=== PATIENT | female | born 1970 | race Caucasian/White ===

== ENCOUNTER 2017-08-19 13:43 | Emergency (ER) | payer BC, SELFPAY ==
[2017-08-19 13:49] VITALS: BP 156/107; PULSE 84; RESP 18; TEMP 37.1; O2SAT 97; BMI 34.1
--- NOTE | 2017-08-19 14:20 | CT_ITS ---
CT abdomen pelvis w con COMPARISON: None HISTORY: Left flank pain for 3 days TECHNIQUE: Multiaxial scans obtained from the hemidiaphragms to the pelvic floor and were performed with IV and oral contrast. Sagittal and coronal reformats were evaluated as well. FINDINGS: The lower lung monzon are clear. The liver spleen stomach pancreas and gallbladder appear grossly normal. There is a small hiatal hernia noted. The adrenal glands are normal.. The kidneys are normal in size and show symmetrical function and there are no calculi and is no obstructive uropathy. Small bowel appears normal. There is a tiny umbilical hernia containing fat only. I do not definitely identify the appendix but there are no pericecal inflammatory changes. There is minimal scattered stool mixed with oral contrast throughout the colon. The uterus is normal size and in the midline. Urinary bladder is grossly normal, there is no free fluid in the pelvis. There is mild degenerative disc disease at L1-2 level with anterior osteophytic spurring noted. IMPRESSION: No acute abdominal or pelvic pathology identified.
--- NOTE | 2017-08-19 14:21 | HMH.EDABDPAI ---
ED Disposition Clinical Impression: Tinea cruris, Diarrhea, Nausea Disposition: Home, Self-Care Condition on Discharge: Fair Instructions: DI for Acute Abdomen Additional Instructions: 1- drink plenty of gotrade 16 q 4 1-2 days. 2- start BRTA diet tomorrow. 3- off work x 2 days. 4- bentyl , zofran and imodium. 5- follow up with pcp in am. 6- to retrun if not better.with a stool sample. Prescriptions: Dicyclomine HCl [Bentyl 10mg capsule] 10 mg PO Q6MINP PRN #12 cap PRN Reason: Cramping Loperamide HCl [Imodium 2 mg capsule] 2 mg PO Q6HP PRN #12 cap PRN Reason: Diarrhea Ondansetron [Zofran 4mg ODT] 4 mg PO Q8HP PRN #6 tab.rapdis PRN Reason: Nausea - Critical Care Critical Care Time: No Attestation: On 08/19/17, the high probability of a clinically significant, sudden or life threatening deterioration of the following system(s) required my full and direct attention, intervention and personal management. The time I documented below is in addition to time spent performing reported procedures but includes the following listed in this critical care notation. Medical Decision Making - Hugo Inquiry Pt receiving controlled substance: No Hugo was queried for this patient: No Vital Signs: 08/19/17 13:49 08/19/17 15:31 Temperature 98.7 F Temperature Source Oral Pulse Rate [Right Radial] 84 68 Respiratory Rate 18 16 Blood Pressure [Right Arm] 156/107 150/86 Blood Pressure Mean [Right Arm] 123 107 Blood Pressure Source [Right Arm] Automatic Cuff Automatic Cuff Blood Pressure Position [Right Arm] Sitting Sitting 02 Sat by Pulse Oximetry 97 98 Oxygen Delivery Method Room Air Room Air - Lab Data Lab Results 08/19/17 14:23: WBC 7.0, RBC 4.59, Hgb 13.7, Hct 41.9, MCV 91.2, MCH 29.9, MCHC 32.8, RDW 14.6, Plt Count 299, MPV 7.3 L, Neut % (Auto) 53.3, Lymph % (Auto) 38.1, [place] % (Auto) 6.9, Eos % (Auto) 1.3, Baso % (Auto) 0.4, Neut # (Auto) 3.7, Lymph # (Auto) 2.7, [place] # (Auto) 0.5, Eos # (Auto) 0.1, Baso # (Auto) 0.0 08/19/17 14:23: Sodium 138, Potassium 3.7, Chloride 102, Carbon Dioxide 28, Anion Gap 11.7, BUN 9, Creatinine 0.70, Estimated Creat Clear 149, Estimated GFR 90, Est GFR ( Amer) 109, Glucose 90, Calcium 8.8, Magnesium 1.9, Total Bilirubin 0.3, AST 71 H, ALT 87 H, Alkaline Phosphatase 98, Total Protein 8.3 H, Albumin 3.5, Globulin 4.8 H, Albumin/Globulin Ratio 0.7 L, Lipase 146 Result diagrams: 08/19/17 14:23 08/19/17 14:23 Orders (Tests/Meds): ED MEDICATIONS Discontinued Medications Generic Name Dose Route Start Last Admin Trade Name Freq PRN Reason Stop Dose Admin Diatrizoate Meglum/Diatrizoate Sod 30 ml 08/19/17 15:23 08/19/17 15:28 Gastrografin 66%-10% 30ml PO 08/19/17 15:24 30 ml ONCE ONE Administration Dicyclomine HCl 10 mg 08/19/17 14:20 08/19/17 15:28 Bentyl 10mg Capsule PO 08/19/17 14:21 10 mg ONCE ONE Administration Famotidine 20 mg 08/19/17 14:20 08/19/17 15:28 Pepcid 20mg/2ml Vial IV 08/19/17 14:21 20 mg ONCE ONE Administration Sodium Chloride 1,000 mls @ 999 mls/hr 08/19/17 14:30 08/19/17 15:37 Sod Chlor 0.9% 1000ml Bag IV 08/19/17 15:30 999 mls/hr .Q1H1M KALYANI Administration Iopamidol 75 ml 08/19/17 17:09 08/19/17 17:15 [id number]; 75ml Vial IV 08/19/17 17:10 75 ml ONCE ONE Administration Ondansetron HCl 4 mg 08/19/17 14:20 08/19/17 15:28 Zofran 4mg/2ml Vial IV 08/19/17 14:21 4 mg ONCE ONE Administration Sodium Chloride 10 ml 08/19/17 17:09 08/19/17 17:15 Rad-Saline Flush 10ml Syringe IV 08/19/17 17:10 10 ml ONCE ONE Administration Abdominal Pain HPI - General Chief Complaint: Abdominal Pain Stated Complaint: Left side Pain Time Seen by Provider: 08/19/17 14:30 Mode of Arrival: Ambulatory Limitations: No Limitations Description of Symptoms (Recalled from ER Triage Doc. by RN): PAIN IN UPPER LEFT QUAD THAT IS TENDER TO THE TOUCH, EXTREME FULLNESS A
--- NOTE | 2017-08-19 14:24 | ED_ITS ---
ED Disposition Clinical Impression: Tinea cruris, Diarrhea, Nausea Disposition: Home, Self-Care Condition on Discharge: Fair Instructions: DI for Acute Abdomen Additional Instructions: 1- drink plenty of gotrade 16 q 4 1-2 days. 2- start BRTA diet tomorrow. 3- off work x 2 days. 4- bentyl , zofran and imodium. 5- follow up with pcp in am. 6- to retrun if not better.with a stool sample. Prescriptions: Dicyclomine HCl [Bentyl 10mg capsule] 10 mg PO Q6MINP PRN #12 cap PRN Reason: Cramping Loperamide HCl [Imodium 2 mg capsule] 2 mg PO Q6HP PRN #12 cap PRN Reason: Diarrhea Ondansetron [Zofran 4mg ODT] 4 mg PO Q8HP PRN #6 tab.rapdis PRN Reason: Nausea - Critical Care Critical Care Time: No Attestation: On 08/19/17, the high probability of a clinically significant, sudden or life threatening deterioration of the following system(s) required my full and direct attention, intervention and personal management. The time I documented below is in addition to time spent performing reported procedures but includes the following listed in this critical care notation. Medical Decision Making - Hugo Inquiry Pt receiving controlled substance: No Hugo was queried for this patient: No Vital Signs: 08/19/17 13:49 08/19/17 15:31 Temperature 98.7 F Temperature Source Oral Pulse Rate [Right Radial] 84 68 Respiratory Rate 18 16 Blood Pressure [Right Arm] 156/107 150/86 Blood Pressure Mean [Right Arm] 123 107 Blood Pressure Source [Right Arm] Automatic Cuff Automatic Cuff Blood Pressure Position [Right Arm] Sitting Sitting 02 Sat by Pulse Oximetry 97 98 Oxygen Delivery Method Room Air Room Air - Lab Data Lab Results 08/19/17 14:23: WBC 7.0, RBC 4.59, Hgb 13.7, Hct 41.9, MCV 91.2, MCH 29.9, MCHC 32.8, RDW 14.6, Plt Count 299, MPV 7.3 L, Neut % (Auto) 53.3, Lymph % (Auto) 38.1, [place]ook[place] % (Auto) 6.9, Eos % (Auto) 1.3, Baso % (Auto) 0.4, Neut # (Auto) 3.7 , Lymph # (Auto) 2.7, [place] # (Auto) 0.5, Eos # (Auto) 0.1, Baso # (Auto) 0.0 08/19/17 14:23: Sodium 138, Potassium 3.7, Chloride 102, Carbon Dioxide 28, Anion Gap 11.7, BUN 9, Creatinine 0.70, Estimated Creat Clear 149, Estimated GFR 90, Est GFR ( Amer) 109, Glucose 90, Calcium 8.8, Magnesium 1.9, Total Bilirubin 0.3, AST 71 H, ALT 87 H, Alkaline Phosphatase 98, Total Protein 8.3 H, Albumin 3.5, Globulin 4.8 H, Albumin/Globulin Ratio 0.7 L, Lipase 146 Result diagrams: 08/19/17 14:23 08/19/17 14:23 Orders (Tests/Meds): ED MEDICATIONS Discontinued Medications Generic Name Dose Route Start Last Admin Trade Name Freq PRN Reason Stop Dose Admin Diatrizoate Meglum/Diatrizoate Sod 30 ml 08/19/17 15:23 08/19/17 15:28 Gastrografin 66%-10% 30ml PO 08/19/17 15:24 30 ml ONCE ONE Administration Dicyclomine HCl 10 mg 08/19/17 14:20 08/19/17 15:28 Bentyl 10mg Capsule PO 08/19/17 14:21 10 mg ONCE ONE Administration Famotidine 20 mg 08/19/17 14:20 08/19/17 15:28 Pepcid 20mg/2ml Vial IV 08/19/17 14:21 20 mg ONCE ONE Administration Sodium Chloride 1,000 mls @ 999 mls/hr 08/19/17 14:30 08/19/17 15:37 Sod Chlor 0.9% 1000ml Bag IV 08/19/17 15:30 999 mls/hr .Q1H1M KALYANI Administration Iopamidol 75 ml 08/19/17 17:09 08/19/17 17:15 [id number]; 75ml Vial IV 08/19/17 17:10 75 ml
[2017-08-19 14:53] LABS: Basophils % 0.4 % (0.1-2.0); Eosinophils # 0.1 K/mm3 (0.0-0.4); Eosinophils % 1.3 % (0.1-12.0); Hematocrit 41.9 % (37.0-47.0); Hemoglobin 13.7 g/dL (12.2-16.2); Lymphocytes # 2.7 K/mm3 (0.7-4.5); Lymphocytes % 38.1 K/mm3 (10-50); Mean Corpuscular HGB Conc 32.8 g/dL (31.8-35.4); Mean Corpuscular Hemoglobin 29.9 pg (27.0-31.2); Mean Corpuscular Volume 91.2 fl (81-99); Mean Platelet Volume 7.3 fl (7.4-10.4); Monocytes # 0.5 K/mm3 (0.1-1.0); Monocytes % 6.9 % (1.7-9.3); Neutrophils # 3.7 K/mm3 (1.8-7.8); Neutrophils % 53.3 % (37.0-80.0); Platelet Count 299 K/mm3 (142-424); Red Blood Count 4.59 M/mm3 (4.20-5.40); Red Cell Distribution Width 14.6 % (11.5-17.5)
[2017-08-19 15:01] LABS: Alanine Aminotransferase 87 U/L (12-78); Albumin Level 3.5 gm/dL (3.4-5.0); Albumin/Globulin Ratio 0.7 (1.1-1.8); Alkaline Phosphatase 98 U/L (46-116); Anion Gap 11.7 mEq/L (5-15); Aspartate Amino Transferase 71 U/L (15-37); Bilirubin,Total 0.3 mg/dL (0.2-1.0); Blood Urea Nitrogen 9 mg/dL (7-18); Calcium 8.8 mg/dL (8.5-10.1); Carbon Dioxide 28 mmol/L (21.0-32.0); Chloride 102 mmol/L (98-107); Creatinine Clearance Estimated 149 mL/min (0-300); Estimated Glomerular Filt Rate 90 ml/min (>60); GFR (African American) 109 ML/MIN (>60); Globulin 4.8 gm/dl (1.3-3.2); Glucose 90 mg/dL (74-106); Lipase 146 u/L (73-393); Magnesium 1.9 mg/dL (1.4-2.2); Potassium 3.7 mmoL/L (3.5-5.1); Sodium 138 mmol/L (136-145); Total Protein,Serum 8.3 gm/dL (6.4-8.2)
[2017-08-19 15:31] VITALS: BP 150/86; PULSE 68; RESP 16; O2SAT 98
--- NOTE | 2017-08-19 15:31 | PC.NURSE ---
Pt finished PO contrast at this time, notified RAD
--- NOTE | 2017-08-19 17:47 | PC.NURSE ---
WATER GIVEN TO PT TO ASSESS PT'S TOLERANCE
--- NOTE | 2017-08-19 18:23 | PC.NURSE ---
PT TOLERATED WATER, GIVEN DEXTER FARRAH AT THIS TIME.
[2017-08-19 18:46] VITALS: BP 150/86; PULSE 88; RESP 14; TEMP 36.9; O2SAT 97
== END 2017-08-19 18:49 | disposition home or self-care (01) ==
PROVIDERS: Emergency Provider Emergency Medicine; Family Provider Family Medicine Geriatric Medicine
DX: B35.6 Tinea cruris (principal); R10.12 Left upper quadrant pain; Z88.1 Allergy status to other antibiotic agents; Z88.2 Allergy status to sulfonamides; Z88.8 Allergy status to other drugs, medicaments and biological substances
CPT/HCPCS: 74177; 80053; 83690; 83735; 85025; 96365; 96375; 99283; J2405; Q9967

== ENCOUNTER → 2017-08-23 14:15 | Outpatient (REF) | payer BC, SELFPAY ==
[2017-08-23 14:18] LABS: Adenovirus F 40/41, stool Not Detected (NotDetected); Astrovirus Not Detected (NotDetected); Campylobacter Not Detected (NotDetected); Clostridium Difficile A/B, PCR Not Detected (NotDetected); Cryptosporidium Not Detected (NotDetected); Cyclospora Cayetanesis Not Detected (NotDetected); Entamoeba histolytica Not Detected (NotDetected); Enteroaggregative E coli Not Detected (NotDetected); Enteropathogenic E coli Not Detected (NotDetected); Enterotoxigenic E coli Not Detected (NotDetected); Giardia lamblia Not Detected (NotDetected); Norovirus Not Detected (NotDetected); Plesimonas Shigalloides, PCR Not Detected (NotDetected); Rotavirus A Not Detected (NotDetected); Salmonella, PCR Not Detected (NotDetected); Sapovirus Not Detected (NotDetected); Shiga-like toxin E coli Not Detected (NotDetected); Shigella Enterovasive E coli Not Detected (NotDetected); Vibrio Cholerae Not Detected (NotDetected); Vibrio, PCR Not Detected (NotDetected); Yersinia Entercolitica, PCR Not Detected (NotDetected)
== END ==
LOC: LAB 14:15
PROVIDERS: Visit Provider Emergency Medicine
DX: R19.7 Diarrhea, unspecified (principal); R11.0 Nausea
CPT/HCPCS: 87507

== ENCOUNTER → 2017-12-13 10:49 | Outpatient (REF) | payer BC, SELFPAY ==
[2017-12-13 13:26] LABS: Basophils % 0.3 % (0.1-2.0); Eosinophils # 0.1 K/mm3 (0.0-0.4); Eosinophils % 1.1 % (0.1-12.0); Hematocrit 40.7 % (37.0-47.0); Hemoglobin 12.8 g/dL (12.2-16.2); Lymphocytes # 2.4 K/mm3 (0.7-4.5); Lymphocytes % 41.2 K/mm3 (10-50); Mean Corpuscular HGB Conc 31.6 g/dL (31.8-35.4); Mean Corpuscular Hemoglobin 29.5 pg (27.0-31.2); Mean Corpuscular Volume 93.6 fl (81-99); Monocytes # 0.2 K/mm3 (0.1-1.0); Monocytes % 4.1 % (1.7-9.3); Neutrophils # 3.1 K/mm3 (1.8-7.8); Neutrophils % 53.2 % (37.0-80.0); Platelet Count 324 K/mm3 (142-424); Red Blood Count 4.35 M/mm3 (4.20-5.40); Red Cell Distribution Width 14.6 % (11.5-17.5); White Blood Count 5.8 K/mm3 (4.8-10.8)
[2017-12-13 13:53] LABS: Alanine Aminotransferase 113 U/L (12-78); Albumin Level 3.4 gm/dL (3.4-5.0); Albumin/Globulin Ratio 0.7 (1.1-1.8); Alkaline Phosphatase 100 U/L (46-116); Anion Gap 12.4 mEq/L (5-15); Aspartate Amino Transferase 95 U/L (15-37); Bilirubin,Total 0.2 mg/dL (0.2-1.0); Blood Urea Nitrogen 13 mg/dL (7-18); Calcium 9.1 mg/dL (8.5-10.1); Carbon Dioxide 28 mmol/L (21.0-32.0); Chloride 103 mmol/L (98-107); Chol/HDL Ratio 3.2 (1-3.5); Cholesterol 149 mg/dL (140-200); Creatinine,Serum 0.79 mg/dL (0.55-1.02); Estimated Glomerular Filt Rate 79 ml/min (>60); GFR (African American) 95 ML/MIN (>60); Globulin 4.6 gm/dl (1.3-3.2); Glucose 167 mg/dL (74-106); HDL Cholesterol 47 mg/dL (29-89); LDL Cholesterol 81 mg/dL (0-130); Potassium 3.4 mmoL/L (3.5-5.1); Sodium 140 mmol/L (136-145); Triglycerides 104 mg/dL (30-200); VLDL Cholesterol 21 mg/dL (0-40)
[2017-12-13 14:02] LABS: Hemoglobin A1C 6.5 % (0.0-7.0)
[2017-12-13 15:57] LABS: Erythrocyte Sedimentation Rate 48 mm/hr (0-20)
[2017-12-14 17:59] LABS: Vitamin D 25 Hydroxy 26.2 ng/mL (30.0-100.0)
== END ==
LOC: LAB 10:49
PROVIDERS: Visit Provider Nurse Practitioner Family
DX: R53.83 Other fatigue (principal); Z79.899 Other long term (current) drug therapy; I10 Essential (primary) hypertension; M25.551 Pain in right hip; M25.552 Pain in left hip
CPT/HCPCS: 80053; 80061; 82652; 83036; 84439; 84443; 85025; 85651

== ENCOUNTER → 2017-12-13 16:21 | Outpatient (CLI) | payer BC, SELFPAY | PROVIDERS: Visit Provider Nurse Practitioner Family | DX: R74.8 Abnormal levels of other serum enzymes (principal) ==

== ENCOUNTER → 2017-12-24 16:32 | Outpatient (CLI) | payer BC, SELFPAY ==
[2017-12-26 11:32] LABS: Hep A Ab, IgM Negative (Negative); Hepatitis B Core Antibody IgM Negative (Negative); Hepatitis B Surface Antigen Negative (Negative)
[2017-12-28 06:33] LABS: Hepatitis C Antibody 0.1 s/co ratio (0.0-0.9)
== END ==
PROVIDERS: Visit Provider Nurse Practitioner Family
DX: R74.8 Abnormal levels of other serum enzymes (principal)
CPT/HCPCS: 36415; 80074

== ENCOUNTER → 2017-12-28 10:16 | Outpatient (CLI) | payer BC, SELFPAY ==
--- NOTE | 2017-12-28 10:17 | US_ITS ---
US thyroid COMPARISON: None HISTORY: Weight gain, fatigue TECHNIQUE: Targeted ultrasound the thyroid FINDINGS: The isthmus appears normal. The right lobe measures 1.2 x 4.1 x 1.7 cm. The left lobe measures 1.5 x 4.4 x 1.7 cm. There is homogeneous echogenicity in each lobe. There is a tiny hypoechoic but likely solid nodule lower pole left lobe measuring 0.4 x 0.3 cm in diameter. There are somewhat decreased flow bilaterally. IMPRESSION: Borderline enlarged gland with possible tiny adenoma left lobe
== END ==
PROVIDERS: Family Provider Family Medicine Geriatric Medicine; PCP Nurse Practitioner Family; Visit Provider Emergency Medicine
DX: E04.1 Nontoxic single thyroid nodule (principal)
CPT/HCPCS: 76536

== ENCOUNTER → 2018-04-22 18:28 | Outpatient (CLI) | payer BC, SELFPAY | PROVIDERS: Visit Provider Nurse Practitioner Family | DX: R82.998 Other abnormal findings in urine (principal) | CPT/HCPCS: 82043; 87086 ==

== ENCOUNTER → 2018-09-24 09:15 | Outpatient (CLI) | payer BC, SELFPAY ==
[2018-09-24 10:47] VITALS: BMI 34.1
== END ==
PROVIDERS: PCP Emergency Medicine; Visit Provider Nurse Practitioner Family
DX: E11.9 Type 2 diabetes mellitus without complications (principal)
CPT/HCPCS: 97802

== ENCOUNTER → 2018-12-26 14:10 | Outpatient (CLI) | payer BC, SELFPAY | PROVIDERS: Visit Provider Physician Assistant | DX: N39.0 Urinary tract infection, site not specified (principal) | CPT/HCPCS: 87086 ==

== ENCOUNTER 2019-12-24 10:07 | Emergency (ER) | payer BC, SELFPAY ==
[2019-12-24 10:18] VITALS: BP 116/75; PULSE 68; RESP 17; TEMP 36.9; O2SAT 99; BMI 30.4
--- NOTE | 2019-12-24 10:23 | XR_ITS ---
PROCEDURE: XR LUMBAR SPINE 2-3V CLINICAL INDICATION: pain Low back pain COMPARISON: ABDPELW CT abdomen pelvis w con from 08/19/2017 FINDINGS: There is normal alignment. There is degenerative disc disease at L1-L2 L2-L3 L4-5 and L5-S1 with endplate osteophytes anteriorly at L1-L2 and smaller anterior osteophytes at L3-L4 and L5. Small posterior osteophytes are present at L4-5 and L5-S1. There is kyphosis at the lumbo thoracic junction. There is 3 mm retrolisthesis of L2. no lytic or blastic change. IMPRESSION: Multilevel lumbar spondylosis as detailed above. Dictated by: Rohith Patiño MD 12/24/2019 12:00 Electronically signed by Rohith Patiño MD in [place] 12/24/2019 12:00
--- NOTE | 2019-12-24 10:24 | PC.NURSE ---
UA being sent to lab at this time.
[2019-12-24 10:29] LABS: Microscopic, Urine URINE MICROSCOPIC (MICROSCOPIC)
[2019-12-24 10:33] LABS: Appearance,Urine CLEAR (Clear); Bilirubin,Urine Negative (Negative); Blood, Urine 1+ (Negative); Color,Urine YELLOW (Yellow); Glucose,Urine (UA) Negative (Negative); Ketones,Urine Negative (Negative); Leukocyte Esterase,Urine 2+ (Negative); Nitrate,Urine Negative (Negative); Protein,Urine 1+ (Negative); Specific Gravity, Urine >= 1.030 (1.005-1.030); Urobilinogen,Urine 0.2 EU/dl (0.2)
[2019-12-24 10:43] LABS: WBC,Urine 20-50 #/hpf (0-3)
[2019-12-24 10:44] LABS: Bacteria,Urine 3+ /lpf
--- NOTE | 2019-12-24 11:06 | HMH.EDGENADL ---
ED Disposition Clinical Impression: Pyelonephritis Disposition: Home, Self-Care Condition on Discharge: Good Instructions: DI for Kidney Infection Additional Instructions: Additional instructions for URINARY TRACT INFECTION: See your physician in 2-3 days for follow up and culture results. Return immediately if you have an uncontrollable fever greater than 102 degrees, severe back or abdominal pain, inability to urinate, or repetitive vomiting. See Dr. Metzger in the office tomorrow. Prescriptions: Ibuprofen [Ibuprofen 800mg Tab] 800 mg PO Q8HP PRN #15 tab PRN Reason: Moderate Pain Transmission Status: Received by [id number] Ciprofloxacin HCl [Ciprofloxacin 500mg Tab] 500 mg PO BID #20 tab Transmission Status: Received by [id number] Referrals: Hubert Medley MD [Primary Care Provider] - Forms: Work/School Release - Critical Care Critical Care Time: No Attestation: On 12/24/19, the high probability of a clinically significant, sudden or life threatening deterioration of the following system(s) required my full and direct attention, intervention and personal management. The time I documented below is in addition to time spent performing reported procedures but includes the following listed in this critical care notation. Medical Decision Making - Medical Records Medical records reviewed: Yes: I reviewed the patient's medical records. - Hugo Inquiry Pt receiving controlled substance: Yes (patient requests more pain med after toradol) Hugo was queried for this patient: Yes Reference #:: [id number] Risks and benefits of using a controlled substance: were not discussed with pt by me Comment: 0 rxs. Vital Signs: 12/24/19 10:18 12/24/19 13:30 12/24/19 13:58 Temperature 98.5 F 98.5 F Temperature Source Oral Pulse Rate 74 Pulse Rate [Radial] 68 79 Respiratory Rate 17 16 Blood Pressure 110/74 Blood Pressure [Right Arm] 116/75 103/74 L Blood Pressure Mean [Right Arm] 88 83 Blood Pressure Source Automatic Cuff Blood Pressure Source [Right Arm] Automatic Cuff Automatic Cuff Blood Pressure Position Sitting Blood Pressure Position [Right Arm] Sitting Sitting 02 Sat by Pulse Oximetry 99 98 Oxygen Delivery Method Room Air Room Air Room Air - Lab Data Lab results reviewed: Yes: I reviewed the patient's lab results. Lab Results 12/24/19 10:19: Urine Color Yellow, Urine Appearance Clear, Urine pH 6.0, Ur Specific Howes >= 1.030, Urine Protein 1+, Urine Glucose (UA) Negative, Urine Ketones Negative, Urine Blood 1+, Urine Nitrate Negative, Urine Bilirubin Negative, Urine Urobilinogen 0.2, Ur Leukocyte Esterase 2+ A, Urine WBC 20-50, Ur Squamous Epith Cells 10-20, Urine Bacteria 3+ 12/24/19 11:30: WBC 10.1, RBC 3.88 L, Hgb 11.7 L, Hct 34.3 L, MCV 88.4, MCH 30.1, MCHC 34.0, RDW 14.7, Plt Count 258, MPV 8.1, Neut % (Auto) 86.2 H, Lymph % (Auto) 7.8 L, [place] % (Auto) 3.8, Eos % (Auto) 2.2, Baso % (Auto) 0.1, Neut # (Auto) 8.7 H, Lymph # (Auto) 0.8, [place] # (Auto) 0.4, Eos # (Auto) 0.2, Baso # (Auto) 0.0, Total Counted 100, Neutrophils % (Manual) 83 H, Band Neutrophils % 6.0, Lymphocytes % (Manual) 8 L, Monocytes % (Manual) 2, Eosinophils % (Manual) 1, Platelet Estimate Normal, RBC Morphology Normal 12/24/19 11:30: Sodium 135 L, Potassium 3.4 L, Chloride 97 L, Carbon Dioxide 30, Anion Gap 11.4, BUN 14, Creatinine 0.70, Estimated Creat Clear 130, Estimated GFR 90, Est GFR ( Amer) 109, Glucose 146 H, Calcium 9.1, Total Bilirubin 0.5, AST 31, ALT 23, Alkaline Phosphatase 109, Total Protein 8.3 H, Albumin 4.0, Globulin 4.3 H, Albumin/Globulin Ratio 0.9 L 12/24/19 11:30: Lactate 1.5 Result diagrams: 12/24/19 11:30 12/24/19 11:30 Orders (Tests/Meds): ED MEDICATIONS Discontinued Medications Generic Name Dose Route Start Last Admin Trade Name Freq PRN Reason Stop Dose Admin Hydrocodone Bitart/Acetaminophen 1 tab 12/24/19 13:27 12/24/19 13:40 [place] 5/325mg Tablet P
[2019-12-24 11:45] LABS: Basophils % 0.1 % (0.1-2.0); Eosinophils # 0.2 K/mm3 (0.0-0.4); Eosinophils % 2.2 % (0.1-12.0); Hematocrit 34.3 % (37.0-47.0); Hemoglobin 11.7 g/dL (12.2-16.2); Lymphocytes # 0.8 K/mm3 (0.7-4.5); Lymphocytes % 7.8 % (10-50); Mean Corpuscular Hemoglobin 30.1 pg (27.0-31.2); Mean Corpuscular Volume 88.4 fl (81-99); Mean Platelet Volume 8.1 fl (7.4-10.4); Monocytes # 0.4 K/mm3 (0.1-1.0); Monocytes % 3.8 % (1.7-9.3); Neutrophils # 8.7 K/mm3 (1.8-7.8); Neutrophils % 86.2 % (37.0-80.0); Platelet Count 258 K/mm3 (142-424); Red Blood Count 3.88 M/mm3 (4.20-5.40); Red Cell Distribution Width 14.7 % (11.5-17.5); White Blood Count 10.1 K/mm3 (4.8-10.8)
[2019-12-24 11:49] LABS: MANUAL DIFFERENTIAL MANUAL DIFFERENTIAL (MANUAL DIFF)
[2019-12-24 11:58] LABS: Lactic Acid 1.5 mmol/L (0.7-2.1)
[2019-12-24 11:59] LABS: Alanine Aminotransferase 23 U/L (12-78); Albumin/Globulin Ratio 0.9 (1.1-1.8); Alkaline Phosphatase 109 U/L (38-126); Anion Gap 11.4 mEq/L (5-15); Aspartate Amino Transferase 31 U/L (14-36); Bilirubin,Total 0.5 mg/dl (0.2-1.3); Blood Urea Nitrogen 14 mg/dl (7-17); Calcium 9.1 mg/dl (8.4-10.2); Carbon Dioxide 30 mmol/L (22.0-30.0); Chloride 97 mmol/L (98-107); Creatinine Clearance Estimated 130 mL/min (50-200); Estimated Glomerular Filt Rate 90 ml/min (>60); GFR (African American) 109 ML/MIN (>60); Globulin 4.3 g/dL (1.3-3.2); Glucose 146 mg/dl (74-100); Potassium 3.4 mmoL/L (3.5-5.1); Sodium 135 mmol/L (136-145); Total Protein,Serum 8.3 g/dl (6.3-8.2)
[2019-12-24 12:13] LABS: Eosinophils % 1 % (0-3); Lymphocytes % 8 % (10-50); Monocytes % 2 % (2-9); Neutrophils % 83 % (42-76); Platelet Estimate Normal; RBC Morphology Normal; Total Cells Counted 100
[2019-12-24 13:30] VITALS: BP 103/74; PULSE 79; O2SAT 98
[2019-12-24 13:58] VITALS: BP 110/74; PULSE 74; RESP 16; TEMP 36.9; O2SAT 98
== END 2019-12-24 14:00 | disposition home or self-care (01) ==
PROVIDERS: Emergency Provider Emergency Medicine; PCP Emergency Medicine
DX: N12 Tubulo-interstitial nephritis, not specified as acute or chronic (principal); E11.9 Type 2 diabetes mellitus without complications; Z79.84 Long term (current) use of oral hypoglycemic drugs; F41.9 Anxiety disorder, unspecified; I10 Essential (primary) hypertension; M79.7 Fibromyalgia; Z88.1 Allergy status to other antibiotic agents; Z79.899 Other long term (current) drug therapy
CPT/HCPCS: 72100; 80053; 81001; 83605; 85007; 85025; 87040; 87086; 96365; 96375; 99284; J1956

== ENCOUNTER 2019-12-28 18:41 | Inpatient (IN) | payer BC, SELFPAY ==
[2019-12-28] VITALS (19 sets, daily range): BP systolic 69–146; BP diastolic 46–89; PULSE 86–101; RESP 16–20; TEMP 37.2–37.5; O2SAT 96–100; BMI 30.2; BMI 31.7
--- NOTE | 2019-12-28 19:02 | HMH.EDGENADL ---
ED Disposition Condition on Discharge: Critical - Critical Care Critical Care Time: Yes Total Critical Care Time: 45 Vital system(s) involved:: Renal Failure, Shock (Septic) My critical care processes included: Assessment & monitoring of V/S, Initial and Re-exams, Data Review/Interpretation, Coordinating Care, Medication Orders and management, Documentation <Hubert Kaye - Last Filed: 12/28/19 19:59> <Hubert Medley - Last Filed: 12/28/19 22:09> Clinical Impression: Sepsis associated hypotension, Severe sepsis with acute organ dysfunction, Septic shock, LIZZETH (acute kidney injury), Obesity (BMI 30.0-34.9), Elevated erythrocyte sedimentation rate, Elevated C-reactive protein (CRP) UTI (urinary tract infection) Qualifiers: Urinary tract infection type: site unspecified Hematuria presence: without hematuria Qualified Code(s): N39.0 - Urinary tract infection, site not specified Diabetes mellitus Qualifiers: Diabetes mellitus type: type 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 insulin use status Diabetes mellitus complication status: with other specified complication Qualified Code(s): E11.69 - Type 2 diabetes mellitus with other specified complication Disposition: Admitted As Inpatient Instructions: DI for Diarrhea and Traveler's Diarrhea -- Adult, DI for Diarrhea and Traveler's Diarrhea -- Child, DI for Nausea -- Adult, DI for Nausea -- Child Referrals: Hubert Medley MD [Primary Care Provider] - Attestation: On 12/28/19, the high probability of a clinically significant, sudden or life threatening deterioration of the following system(s) required my full and direct attention, intervention and personal management. The time I documented below is in addition to time spent performing reported procedures but includes the following listed in this critical care notation. Medical Decision Making - Medical Records Medical records reviewed: Yes: I reviewed the patient's medical records. - Hugo Inquiry Pt receiving controlled substance: No - Lab Data Lab results reviewed: Yes: I reviewed the patient's lab results. Result diagrams: 12/28/19 19:02 12/28/19 19:02 - Tissue Perfus/Sepsis Re-Eval Sepsis Re-Evaluation Performed: Yes Date Performed: 12/28/19 Time Performed: 19:59 <Hubert Kaye - Last Filed: 12/28/19 19:59> - Lab Data Result diagrams: 12/28/19 19:02 12/28/19 19:02 - Radiology Data #1 Image(s): Chest Image Reviewed: Yes I reviewed the patient's radiology image Preliminary Findings: Normal/NAD - CT Data CT Scan: Abdomen, Pelvis Time Received: 22:[address] Reviewed: Yes: I have viewed the radiologist's interpretation Preliminary Findings: Normal/NAD <GalindoHubert rincon S - Last Filed: 12/28/19 22:09> Vital Signs: 12/28/19 18:43 12/28/19 19:00 12/28/19 19:30 Temperature 99.5 F Temperature Source Oral Pulse Rate [Left Radial] 101 H 92 H 88 Pulse Rate [Orthostatic Lying Right Radial] Pulse Rate [Orthostatic Sitting Right Radial] Pulse Rate [Orthostatic Standing Right Radial] Respiratory Rate 20 18 18 Blood Pressure [Orthostatic Lying Right Arm] Blood Pressure [Orthostatic Sitting Right Arm] Blood Pressure [Orthostatic Standing Right Arm] Blood Pressure [Right Radial Artery] 85/62 L 85/50 L 72/48 L Blood Pressure Mean [Right Radial Artery] 69 61 56 Blood Pressure Source [Right Radial Artery] Automatic Cuff Automatic Cuff Blood Pressure Position [Right Radial Artery] Sitting Supine Supine 02 Sat by Pulse Oximetry 97 96 96 Oxygen Delivery Method Room Air Room Air Room Air 12/28/19 19:45 12/28/19 20:00 12/28/19 20:08 Temperature Temperature Source Pulse Rate [Left Radial] 91 H 99 H 88 Pulse Rate [Orthostatic Lying Right Radial] Pulse Rate [Orthostatic Sitting Right Radial] Pulse Rate [Orthostatic Standing Right Radial] Respiratory Rate 18 18 18 Blood Pressure [Orthostatic Lying Right Arm] Blood Pressure [Orthostati
[2019-12-28 19:14] LABS: Basophils % 0.1 % (0.1-2.0); Eosinophils # 0.1 K/mm3 (0.0-0.4); Eosinophils % 0.4 % (0.1-12.0); Hemoglobin 11.1 g/dL (12.2-16.2); Lymphocytes # 0.7 K/mm3 (0.7-4.5); Lymphocytes % 5.8 % (10-50); Mean Corpuscular HGB Conc 33.5 g/dL (31.8-35.4); Mean Corpuscular Hemoglobin 29.6 pg (27.0-31.2); Mean Corpuscular Volume 88.2 fl (81-99); Mean Platelet Volume 8.3 fl (7.4-10.4); Monocytes # 0.2 K/mm3 (0.1-1.0); Monocytes % 1.6 % (1.7-9.3); Neutrophils # 11.6 K/mm3 (1.8-7.8); Neutrophils % 92.1 % (37.0-80.0); Platelet Count 256 K/mm3 (142-424); Red Blood Count 3.74 M/mm3 (4.20-5.40); Red Cell Distribution Width 14.6 % (11.5-17.5); White Blood Count 12.6 K/mm3 (4.8-10.8)
[2019-12-28 19:19] LABS: MANUAL DIFFERENTIAL MANUAL DIFFERENTIAL (MANUAL DIFF)
[2019-12-28 19:23] LABS: Alanine Aminotransferase 25 U/L (12-78); Albumin Level 3.6 g/dl (3.5-5.0); Albumin/Globulin Ratio 0.8 (1.1-1.8); Alkaline Phosphatase 179 U/L (38-126); Anion Gap 20.3 mEq/L (5-15); Aspartate Amino Transferase 35 U/L (14-36); Bilirubin,Total 1.6 mg/dl (0.2-1.3); Blood Urea Nitrogen 35 mg/dl (7-17); Calcium 8.8 mg/dl (8.4-10.2); Carbon Dioxide 26 mmol/L (22.0-30.0); Chloride 89 mmol/L (98-107); Creatinine Clearance Estimated 30 mL/min (50-200); Estimated Glomerular Filt Rate 17 ml/min (>60); GFR (African American) 20 ML/MIN (>60); Globulin 4.3 g/dL (1.3-3.2); Glucose 187 mg/dl (74-100); Potassium 3.3 mmoL/L (3.5-5.1); Sodium 132 mmol/L (136-145); Total Protein,Serum 7.9 g/dl (6.3-8.2)
[2019-12-28 19:30] LABS: Lymphocytes % 4 % (10-50); Neutrophils % 82 % (42-76); Platelet Estimate Normal; RBC Morphology Normal; Rouleaux 1+; Total Cells Counted 100
--- NOTE | 2019-12-28 19:32 | CT_ITS ---
PROCEDURE: CT ABDOMEN PELVIS WO CON CLINICAL INDICATION: fever/bandemia/intractable vomiting COMPARISON: ABDPELW CT abdomen pelvis w con from 08/19/2017 TECHNIQUE: Axial images obtained with sagittal and coronal reformats. All CT scans at the facility use one or more dose reduction, viz: automated exposure control, ma/kV adjustment per patient size (including targeted exams where dose is matched to indication, i.e. head), or iterative reconstruction technique. FINDINGS: Lower thorax: There is a small ill-defined opacity subpleural location right middle lobe with atelectasis versus minimal pneumonic infiltrate as possibilities. ABDOMEN: Liver: No masses or biliary dilatation. Gallbladder: Nondistended. No radio opaque stones but there is a subtle heterogenic appearance to the bile suggesting possibility of biliary sludge. Also there is mild or borderline gall gallbladder wall thickening. Pancreas: No masses or peripancreatic fluid collections. Spleen: unremarkable Adrenals: There is borderline enlargement of both adrenal glands suggesting possibly mild adrenal hyperplasia. Kidneys/ureters: The kidneys are normal in size, there is a tiny nonobstructing calculus, 1 in each kidney. ABDOMEN & PELVIS: Stomach bowel: The stomach is moderately distended with ingested food particles and gas. The duodenal sweep and small bowel appear grossly normal. I do not definitely identify the appendix but no pericecal inflammatory changes. There is moderate scattered stool and gas seen throughout the colon. Peritoneum: There is a tiny umbilical hernia containing fat only. Lymph nodes: No enlarged lymph nodes apparent. Vasculature: No evidence of abdominal aortic aneurysm. No retroperitoneal hemorrhage evident. Bones: There is disc space narrowing and anterior osteophytic spurring at the L1-2 level. PELVIS: Reproductive: The uterus is normal size and in the midline. There is a small right ovarian cyst. Bladder: The urinary bladder is decompressed. There is no free fluid in the pelvis. Appendix: Not definitely identified. IMPRESSION: Subtle heterogenic appearance to the gallbladder suggesting possibility of biliary sludge a consider a follow-up ultrasound right upper quadrant for additional evaluation, no other significant abdominal or pelvic pathology identified Dictated by: Dr. Henrry Quiles MD 12/28/2019 20:[address] Henrry Quiles MD in [place] 12/28/2019 20:21
[2019-12-28 19:45] LABS: VBG Base Excess -3.3 mmol/L (-2.4-2.3); VBG HCO3 21.4 mmol/L (23-30); VBG Oxygen Saturation 86.2 % (50-70); VBG PCO2 35.1 mmol/L (35-51); VBG PO2 53.8 mmol/L (28-40); VBG Total CO2 22.5 mmol/L (23-27)
[2019-12-28 19:45] LABS: Microscopic, Urine URINE MICROSCOPIC (MICROSCOPIC)
[2019-12-28 19:51] LABS: C-Reactive Protein 267.4 mg/L (0-4)
[2019-12-28 19:52] LABS: Appearance,Urine CLOUDY (Clear); Blood, Urine 3+ (Negative); Color,Urine DK YELLOW (Yellow); Glucose,Urine (UA) Negative (Negative); Ketones,Urine TRACE (Negative); Leukocyte Esterase,Urine 1+ (Negative); Nitrate,Urine Negative (Negative); Protein,Urine 2+ (Negative); Specific Gravity, Urine >= 1.030 (1.005-1.030)
[2019-12-28 19:57] LABS: Bilirubin,Urine 2+ (Negative)
--- NOTE | 2019-12-28 19:57 | XR_ITS ---
PROCEDURE: XR CHEST PORTABLE CLINICAL HISTORY: sob Nausea, vomiting and fever. Nonsmoker. History of endometriosis. COMPARISON: CXR CHEST(2 VIEWS-NOT PORTABLE) from 03/09/2017 FINDINGS: The cardiomediastinal silhouette and pulmonary vascularity are within normal limits. There is an elevated diaphragm right side more than the left. No demonstrated consolidation common acute vascular congestion or pleural effusion in the visualized lungs. Linear areas of atelectasis are seen at the lung bases. No acute bony abnormalities. IMPRESSION: Bibasilar linear atelectasis. An elevated right hemidiaphragm. No demonstrated consolidation, acute vascular congestion or pleural effusion of the visualized lungs. Dictated by: Arcadio Betancur 12/29/2019 08:55 Electronically signed by Arcadio Betancur in [place] 12/29/2019 08:55
[2019-12-28 19:58] LABS: Amorphous Sediment,Urine 4+ /lpf; Squamous Epithelial Cell,Urine 50-100 #/hpf (0-5)
[2019-12-28 20:00] LABS: Erythrocyte Sedimentation Rate 126 mm/hr (0-20)
--- NOTE | 2019-12-28 20:03 | PC.NURSE ---
2400ml bolus completed
--- NOTE | 2019-12-28 22:16 | PC.NURSE ---
Starting dose was 5 mcg/kg/min pt just increased to 7.5 mcg/kg/min
--- NOTE | 2019-12-28 22:53 | PC.NURSE ---
patient up to floor via stretcher per staff.
--- NOTE | 2019-12-28 23:40 | HMH.HP ---
*Admission Date: 12/28/19 *Chief complaint: dec po intake *History of present illness: this pt presented to the ed with dec po intake and fever - she has been seen in the er earlier with dx of uti - his is a 49-year-old female who presents with intractable nausea and vomiting as well as fever and chills. Patient denies any abdominal pain at this time. She reports being seen in the ED approximately 4 days ago diagnosed with urinary tract infection but has been unable to keep her antibiotics down. She also reports little to no p.o. intake over the last few days. She denies diarrhea but reports that the stools have been somewhat loose. She denies any significant dysuria or flank pain. No hematuria or hematochezia. Vomitus mostly includes only foodstuffs that she had eaten prior. Fever up to 102. She also reports generalized weakness and malaise as well as body aches. No significant cough. No headache. pt was admitted with letha and sepsis [facility] History I have reviewed the patient's past medical history: Yes Medical History: Reports:: Anxiety, Hypertension Denies:: Cancer, Diabetes Mellitus Type 1, Diabetes Mellitus Type 2, MRSA *Have you ever received a pneumonia vaccine?: No *Have you received a flu vaccine this season?: Yes Other Medical History: Reports: Arthritis, Fibromyalgia, Liver Disease, Sinus Problems, Other Laterality Cases: Right: Arthroscopy Shoulder Other Surgeries: Yes: Diagnostic Lap, Other Amputation: No Fractures: Yes - *Social History Smoking Status: Never smoker Alcohol Intake: never Substance Use Type: denies use *Occupational Status:: employed Housing: other Household Members: other *Travel in the last 8 weeks: None - Psychiatric History Pschychiatric History:: Reports:: Anxiety Family Hx:: Bleeding Disorder, Diabetes, Heart Attack, Hyperlipidemia, Hypertension Review of Systems - Review of Systems Review of systems:: pertinent systems reviewed and negative unless documented below - Constitutional Reports fever(s), Reports weakness - Eyes Denies change in vision - ENT Denies sore throat - *Cardiovascular Denies chest pain at rest - *Respiratory Denies cough - *Gastrointestinal Reports nausea, Reports vomiting, Denies abdominal pain - *Genitourinary Denies blood in urine - *Musculoskeletal Denies joint pain - Integumentary/Breasts Denies rash - *Neurologic Denies confusion, Denies seizure-like activity, Denies localized weakness, Denies headache(s) Meds Home Medications Medication Instructions Recorded Confirmed Type albuterol sulfate 90 mcg/actuation 2 puff INHALATION Q4-6H PRN #18 g 01/28/19 12/28/19 Rx aerosol inhaler hydroxychloroquine 200 mg tablet 200 mg PO DAILY tab 09/02/19 12/28/19 History omeprazole 40 mg capsule,delayed 40 mg PO DAILY cap 09/02/19 12/28/19 History release Ibuprofen [Ibuprofen 800mg Tab] 800 mg PO Q8HP PRN #15 tab 12/24/19 12/28/19 Rx Atorvastatin Calcium [Lipitor 10mg 10 mg PO QHS 12/28/19 12/28/19 History Tab] Losartan Potassium [Cozaar 50mg 50 mg PO DAILY 12/28/19 12/28/19 History Tablets] Metformin HCl [Glucophage Xr] 500 mg PO BID 12/28/19 12/28/19 History PARoxetine HCL [Paxil 20mg Tablet] 20 mg PO DAILY 12/28/19 12/28/19 History Tobramycin/Dexamethasone [Tobradex 2 drp OPHTHALMIC (EYE) TID 12/28/19 12/28/19 History Eye Drops] hydroCHLOROthiazide 12.5 mg PO DAILY 12/28/19 12/28/19 History [Hydrochlorothiazide 12.5mg Tab] Allergies Allergy/AdvReac Type Severity Reaction Status Date / Time venlafaxine [From EFFEXOR] Allergy Severe Anaphylaxis Verified 12/28/19 23:35 amoxicillin [From AUGMENTIN] Allergy Mild Rash Verified 12/28/19 23:35 cephalexin [From Keflex] Allergy Mild Rash Verified 12/28/19 23:37 clavulanic acid Allergy Mild Rash Verified 12/28/19 23:35 [From AUGMENTIN] sulfamethoxazole Allergy Mild Rash Verified 12/28/19 23:35 [From BACTRIM] trimethoprim [From BACTRIM] Allergy Mi
[2019-12-29] VITALS (69 sets, daily range): BP systolic 89–151; BP diastolic 45–90; PULSE 78–104; RESP 16–20; TEMP 36.6–37.3; O2SAT 93–100; BMI 31.8; BMI 31.9
--- NOTE | 2019-12-29 02:42 | PC.NURSE ---
2345 patient systolic bp greater than 100, levophed drip titrated to 6.5mcq/min. will continue to monitor.
--- NOTE | 2019-12-29 02:43 | PC.NURSE ---
0230 sbp remaining over 90 consistantly, levophed drip decreased to 5.5 mcq/min. will continue to monitor.
--- NOTE | 2019-12-29 02:44 | PC.NURSE ---
2300 received patient to floor on 7.5 mcq/min levophed. shelter monitor shows sr-st 90s to low 100. bilateral iv sites patent.
--- NOTE | 2019-12-29 04:28 | PC.NURSE ---
levophed drip decreased to 4.5 mcq/min. patient ambulates to bathroom with standby assist.
--- NOTE | 2019-12-29 05:04 | PC.NURSE ---
levophed drip decreased to 3.5 mcq/min
[2019-12-29 05:36] LABS: POC Glucose,Bedside 140 (70-110)
[2019-12-29 05:57] LABS: Basophils % 0.3 % (0.1-2.0); Eosinophils # 0.1 K/mm3 (0.0-0.4); Eosinophils % 1.2 % (0.1-12.0); Hematocrit 30.2 % (37.0-47.0); Hemoglobin 10.6 g/dL (12.2-16.2); Lymphocytes # 1.4 K/mm3 (0.7-4.5); Mean Corpuscular Hemoglobin 30.2 pg (27.0-31.2); Mean Corpuscular Volume 86.2 fl (81-99); Mean Platelet Volume 7.9 fl (7.4-10.4); Monocytes # 0.2 K/mm3 (0.1-1.0); Monocytes % 1.9 % (1.7-9.3); Neutrophils # 8.7 K/mm3 (1.8-7.8); Neutrophils % 83.6 % (37.0-80.0); Platelet Count 209 K/mm3 (142-424); Red Cell Distribution Width 14.5 % (11.5-17.5); White Blood Count 10.4 K/mm3 (4.8-10.8)
[2019-12-29 06:08] LABS: Blood Urea Nitrogen 27 mg/dl (7-17); Carbon Dioxide 24 mmol/L (22.0-30.0); Chloride 98 mmol/L (98-107); Creatinine Clearance Estimated 48 mL/min (50-200); Estimated Glomerular Filt Rate 27 ml/min (>60); GFR (African American) 32 ML/MIN (>60); Sodium 135 mmol/L (136-145)
[2019-12-29 06:09] LABS: Calcium 7.9 mg/dl (8.4-10.2); Glucose 146 mg/dl (74-100)
--- NOTE | 2019-12-29 07:21 | P.CONPHA_ITS ---
[facility] Pharmacy VTE Monitoring - Patient Demographics Admission date: 12/28/19 Report Date: 12/29/19 Time: 07:21 Allergies/Adverse Reactions: Patient Allergies venlafaxine [From EFFEXOR] Allergy (Severe, Verified 12/28/19 23:35) Anaphylaxis amoxicillin [From AUGMENTIN] Allergy (Mild, Verified 12/28/19 23:35) Rash cephalexin [From Keflex] Allergy (Mild, Verified 12/28/19 23:37) Rash clavulanic acid [From AUGMENTIN] Allergy (Mild, Verified 12/28/19 23:35) Rash sulfamethoxazole [From BACTRIM] Allergy (Mild, Verified 12/28/19 23:35) Rash trimethoprim [From BACTRIM] Allergy (Mild, Verified 12/28/19 23:35) Rash Height: 1.65 m Weight: 86.6 kg Patient Problems: Current Active Problems UTI (urinary tract infection) (Acute) Sepsis associated hypotension (Acute) Severe sepsis with acute organ dysfunction (Acute) Septic shock (Acute) LIZZETH (acute kidney injury) (Acute) Obesity (BMI 30.0-34.9) (Acute) Elevated erythrocyte sedimentation rate (Acute) Elevated C-reactive protein (CRP) (Acute) Diabetes (Chronic) - VTE Risk Labs: VTE Related Lab Results Hgb 10.6 g/dL (12.2-16.2) L 12/29/19 05:20 Hct 30.2 % (37.0-47.0) L 12/29/19 05:20 Plt Count 209 K/mm3 (142-424) 12/29/19 05:20 BUN 27 mg/dl (7-17) H 12/29/19 05:20 Creatinine 2.00 mg/dl (0.52-1.04) H D 12/29/19 05:20 Estimated Creat Clear 48 mL/min (50-200) 12/29/19 05:20 VTE Score: 5 Clinical Trial Participant: No - Prophylaxis VTE Prophylaxis Ordered?: Yes Types of VTE Prophylaxis: TEDS Knee High
--- NOTE | 2019-12-29 07:29 | PC.NURSE ---
Levophed drip titrated down to 2.5mcg/min, current BP 103/66, MAP 78, HR 88
--- NOTE | 2019-12-29 07:35 | HMH.PHAINT ---
MEDICATION RECONCILIATION COMPLETED USING EXTERNAL FILL HISTORY AND PATIENT.
--- NOTE | 2019-12-29 09:14 | PC.NURSE ---
0900- BP 91/45, MAP 60, HR 85, levophed titrated to 3mcg/min
[2019-12-29 09:36] LABS: Adenovirus,PCR Not Detected (NotDetected); Bordetella Pertussis Not Detected (NotDetected); Chlamydophila Pneumoniae, PCR Not Detected (NotDetected); Coronavirus 19, PCR Not Detected (NotDetected); Coronavirus 229E Not Detected (NotDetected); Coronavirus NL63 Not Detected (NotDetected); Coronavirus OC43 Not Detected (NotDetected); Coronovirus HKU1,PCR Not Detected (NotDetected); Human Metapneumovirus Not Detected (NotDetected); Influenza A, PCR Not Detected (NotDetected); Influenza AH1, 2009 Not Detected (NotDetected); Influenza AH1, PCR Not Detected (NotDetected); Influenza AH3,PCR Not Detected (NotDetected); Influenza B, PCR Not Detected (NotDetected); Mycoplasma Pneumoniae, PCR Not Detected (NotDected); Parainfluenza 1, PCR Not Detected (NotDetected); Parainfluenza 2, PCR Not Detected (NotDetected); Parainfluenza 3, PCR Not Detected (NotDetected); Parainfluenza 4, PCR Not Detected (NotDetected); Respiratory Syncytial Virus Not Detected (NotDetected); Rhinovirus/Enterovirus Not Detected (NotDetected)
--- NOTE | 2019-12-29 11:18 | PC.NURSE ---
Levophed titrated to 2.5mcg/min, BP 102/67, MAP 78, HR 87
[2019-12-29 11:23] LABS: POC Glucose,Bedside 161 (70-110)
--- NOTE | 2019-12-29 11:57 | PC.NURSE ---
1145- Levophed titrated down to 2mcg/min, current BP 108/65, MAP 79, HR 84
--- NOTE | 2019-12-29 12:20 | HMH.ACPN2 ---
Internal Medicine - PN: Subj *Date: 12/29/19 *Time: 12:27 Interval history: The patient is looking somewhat better today. She remains on Levophed at a small dose, weaning down. She is lucid, clear. Nursing staff relays no worrisome concerns. Exam Vital signs and Labs for Last 24 Hours: Temp Pulse Resp BP Pulse Ox 98.7 F 89 18 99/64 L 96 12/29/19 08:00 12/29/19 12:00 12/29/19 12:00 12/29/19 12:00 12/29/19 12:00 Laboratory Results - last 24 hr 12/28/19 19:02: WBC 12.6 H, RBC 3.74 L, Hgb 11.1 L, Hct 33.0 L, MCV 88.2, MCH 29.6, MCHC 33.5, RDW 14.6, Plt Count 256, MPV 8.3, Neut % (Auto) 92.1 H, Lymph % (Auto) 5.8 L, Campbell % (Auto) 1.6 L, Eos % (Auto) 0.4, Baso % (Auto) 0.1, Neut # (Auto) 11.6 H, Lymph # (Auto) 0.7, Campbell # (Auto) 0.2, Eos # (Auto) 0.1, Baso # (Auto) 0.0, Total Counted 100, Neutrophils % (Manual) 82 H, Band Neutrophils % 14.0 H, Lymphocytes % (Manual) 4 L, Platelet Estimate Normal, RBC Morphology Normal, Rouleaux 1+ 12/28/19 19:02: Sodium 132 L, Potassium 3.3 L, Chloride 89 L, Carbon Dioxide 26, Anion Gap 20.3 H, BUN 35 H, Creatinine 3.00 H, Estimated Creat Clear 30, Estimated GFR 17 L*, Est GFR ( Amer) 20 L, Glucose 187 H, Calcium 8.8, Total Bilirubin 1.6 H, AST 35, ALT 25, Alkaline Phosphatase 179 H, Total Protein 7.9, Albumin 3.6, Globulin 4.3 H, Albumin/Globulin Ratio 0.8 L 12/28/19 19:02: Lactate 2.0 12/28/19 19:02: ESR 126 H 12/28/19 19:02: C-Reactive Protein 267.4 H 12/28/19 19:40: Urine Color Dk yellow, Urine Appearance Cloudy, Urine pH 5.0, Ur Specific [place] >= 1.030, Urine Protein 2+, Urine Glucose (UA) Negative, Urine Ketones Trace, Urine Blood 3+, Urine Nitrate Negative, Urine Bilirubin 2+ A, Urine Urobilinogen 2.0, Ur Leukocyte Esterase 1+ A, Urine RBC 10-20, Urine WBC 10-20, Ur Squamous Epith Cells 50-100, Amorphous Sediment 4+ 12/28/19 19:43: VBG pH 7.40, VBG pCO2 35.1, VBG pO2 53.8 H, VBG HCO3 21.4 L, VBG Total CO2 22.5 L, VBG O2 Saturation 86.2 H, VBG Base Excess -3.3 L 12/29/19 05:18: POC Glucose 140 H 12/29/19 05:20: WBC 10.4, RBC 3.50 L, Hgb 10.6 L, Hct 30.2 L, MCV 86.2, MCH 30.2, MCHC 35.0, RDW 14.5, Plt Count 209, MPV 7.9, Neut % (Auto) 83.6 H, Lymph % (Auto) 13.0, [place] % (Auto) 1.9, Eos % (Auto) 1.2, Baso % (Auto) 0.3, Neut # (Auto) 8.7 H, Lymph # (Auto) 1.4, [place] # (Auto) 0.2, Eos # (Auto) 0.1, Baso # (Auto) 0.0 12/29/19 05:20: Sodium 135 L, Potassium 3.0 L, Chloride 98, Carbon Dioxide 24, Anion Gap 16.0 H, BUN 27 H, Creatinine 2.00 H D, Estimated Creat Clear 48, Estimated GFR 27 L, Est GFR ( Amer) 32 L D, Glucose 146 H D, Calcium 7.9 L D 12/29/19 09:00: Chlamy pneumoniae PCR Not detected, Adenovirus (PCR) Not detected, B. pertussis DNA (PCR) Not detected, Coronavirus OC43 (PCR) Not detected, Coronavirus HKU1 (PCR) Not detected, Coronavirus 229E (PCR) Not detected, COVID-19 PCR Not detected, Coronavirus NL63 (PCR) Not detected, Human Metapneumovir PCR Not detected, Influenza A (H1) PCR Not detected, Influ A (H1N1/09) PCR Not detected, Influenza A (H3) PCR Not detected, Influenza Type A (PCR) Not detected, Influenza Type B (PCR) Not detected, M. pneumoniae (PCR) Not detected, Parainfluenza 1 (PCR) Not detected, Parainfluenza 2 (PCR) Not detected, Parainfluenza 3 (PCR) Not detected, Parainfluenza 4 (PCR) Not detected, RSV (PCR) Not detected, Entero/Rhino (PCR) Not detected 12/29/19 11:11: POC Glucose 161 H I & O for Last 24 hours: Intake & Output 12/26/19 12/27/19 12/28/19 12/29/19 23:59 23:59 23:59 23:59 Intake Total 3100 / 3100 1666 / 1666 Output Total 2500 / 2500 Balance 3100 / 2500 -834 / -834 Weight 190 lb 14.725 oz 190 lb 14.725 oz - Constitutional no acute distress, cooperative - *Routine HEENT Exam Head: Present: normocephalic ENT: Present: mucous membranes moist - *Routine Neck Exam Present: supple - *Routine Respiratory Exam Absent: accessory muscle use - *Routine Cardiovascular Exam Present: RRR - *Routine Abdominal Exam Present: soft - *
--- NOTE | 2019-12-29 12:44 | PC.NURSE ---
1230- Levophed titrated down to 1.5mcg/min, BP 99/66, MAP 77, HR 87
--- NOTE | 2019-12-29 13:54 | PC.NURSE ---
1330- Levophed titrated to 1mcg/min, BP 99/53, MAP 68, HR 87
--- NOTE | 2019-12-29 14:49 | PC.NURSE ---
1400- Levophed titrated to 0.5mcg/min, BP 96/58, MAP 70, HR 91 1445- Levophed titrated to off at this time, BP 91/54, MAP 66, HR 90
[2019-12-29 17:11] LABS: POC Glucose,Bedside 140 (70-110)
--- NOTE | 2019-12-29 17:13 | PC.NURSE ---
Patient weaned from levophed drip this shift, blood pressure remains stable at this time, pt is on RA, lungs cta, alert and oriented x4, perrla, apprentice lineman third step equals, has been up to chair x2 this shift, ambulates to the bathroom with walker and standby assist, pt has c/o knee pain which is chronic this shift, treated with tylenol per emar with good results, abd soft and nontender, active bowel sounds in all quads, no nausea or vomiting this shift, no bowel movement, on contact enteric precautions while awaiting stool sample to rule out c diff, no edema noted, no s/s of distress noted, will continue to monitor closely.
--- NOTE | 2019-12-29 19:12 | PC.NURSE ---
report given to britney
[2019-12-29 21:46] LABS: POC Glucose,Bedside 126 (70-110)
[2019-12-30] VITALS (7 sets, daily range): BP systolic 107–121; BP diastolic 56–72; PULSE 79–100; RESP 18–20; TEMP 36.8–37.2; O2SAT 92–99; BMI 318325.9; BMI 31.8
--- NOTE | 2019-12-30 03:17 | PC.NURSE ---
Pt A&OX4 lungs CTA. Pt C/O of bilateral chronic knee pain was medicated per AUG.Pt received a shower and bed change. Pt ambulates to with walker and standby assistance and tolerated well. NSR on tele. Pt has rested quietly this shift.
[2019-12-30 06:31] LABS: POC Glucose,Bedside 156 (70-110)
--- NOTE | 2019-12-30 09:03 | HMH.ACPN2 ---
Internal Medicine - PN: Subj *Date: 12/30/19 *Time: 10:19 Interval history: 49-year-old female patient resting in bed quietly, she reports she is feeling better. Levophed was weaned off yesterday blood pressure this a.m. 109/72. She still on IV Invanz, she was afebrile overnight. Exam Vital signs and Labs for Last 24 Hours: Temp Pulse Resp BP Pulse Ox 98.3 F 89 20 109/72 L 93 L 12/30/19 08:00 12/30/19 08:00 12/30/19 08:00 12/30/19 08:00 12/30/19 08:00 Laboratory Results - last 24 hr 12/29/19 09:00: Chlamy pneumoniae PCR Not detected, Adenovirus (PCR) Not detected, B. pertussis DNA (PCR) Not detected, Coronavirus OC43 (PCR) Not detected, Coronavirus HKU1 (PCR) Not detected, Coronavirus 229E (PCR) Not detected, COVID-19 PCR Not detected, Coronavirus NL63 (PCR) Not detected, Human Metapneumovir PCR Not detected, Influenza A (H1) PCR Not detected, Influ A (H1N1/09) PCR Not detected, Influenza A (H3) PCR Not detected, Influenza Type A (PCR) Not detected, Influenza Type B (PCR) Not detected, M. pneumoniae (PCR) Not detected, Parainfluenza 1 (PCR) Not detected, Parainfluenza 2 (PCR) Not detected, Parainfluenza 3 (PCR) Not detected, Parainfluenza 4 (PCR) Not detected, RSV (PCR) Not detected, Entero/Rhino (PCR) Not detected 12/29/19 11:11: POC Glucose 161 H 12/29/19 16:55: POC Glucose 140 H 12/29/19 21:12: POC Glucose 126 H 12/30/19 06:15: POC Glucose 156 H I & O for Last 24 hours: Intake & Output 12/27/19 12/28/19 12/29/19 12/30/19 23:59 23:59 23:59 23:59 Intake Total 3100 / 3100 3280 / 3280 1024 / 1024 Output Total 5200 / 5200 850 / 850 Balance 3100 / 2500 -1920 / -1920 174 / 174 Weight 190 lb 14.725 oz 191 lb 12.835 oz 191 lb 5 oz Microbiology Reports for the Last 24 Hours: Microbiology 12/28/19 19:40 Urine,Random Urine Culture - Final Multiple organisms, suggests contamination. - Constitutional no acute distress - *Routine HEENT Exam Head: Present: normocephalic ENT: Present: mucous membranes moist. Absent: sinus tenderness - *Routine Neck Exam Present: full ROM, trachea midline. Absent: JVD, tracheal deviation - *Routine Respiratory Exam Present: CTA bilaterally. Absent: accessory muscle use - *Routine Cardiovascular Exam Present: RRR - *Routine Abdominal Exam Present: soft, normoactive bowel sounds. Absent: tenderness, rigid - *Routine Extremities Exam Present: full ROM, pulses intact. Absent: calf tenderness - *Routine Skin Exam Present: intact, dry, warm. Absent: cyanosis, erythema - *Routine Neurological Exam Present: alert, oriented X3. Absent: altered mental status - Routine Psychiatric Exam Present: normal affect, normal thought process Assessment and Plan (1) LIZZETH (acute kidney injury) Current visit: Yes Status: Acute Category: Medical Code(s): N17.9 - Acute kidney failure, unspecified (2) Elevated C-reactive protein (CRP) Current visit: Yes Status: Acute Category: Medical Code(s): R79.82 - Elevated C-reactive protein (CRP) (3) Elevated erythrocyte sedimentation rate Current visit: Yes Status: Acute Category: Medical Code(s): R70.0 - Elevated erythrocyte sedimentation rate (4) Obesity (BMI 30.0-34.9) Current visit: Yes Status: Acute Category: Medical Code(s): E66.9 - Obesity, unspecified (5) Septic shock Current visit: Yes Status: Acute Category: Medical Code(s): A41.9 - Sepsis, unspecified organism; R65.21 - Severe sepsis with septic shock (6) Severe sepsis with acute organ dysfunction Current visit: Yes Status: Acute Category: Medical Code(s): A41.9 - Sepsis, unspecified organism; R65.20 - Severe sepsis without septic shock (7) UTI (urinary tract infection) Current visit: Yes Status: Acute Qualifiers: Urinary tract infection type: site unspecified Hematuria presence: without hematuria Qualified Code(s): N39.0 - Urinary tract infection, site not specif
[2019-12-30 11:32] LABS: POC Glucose,Bedside 140 (70-110)
--- NOTE | 2019-12-30 12:19 | PC.NURSE ---
Called and LM with Dr. Domínguez office at this time in RE to pts c diff send out. Pt has had no loose stools noted thus far. Awaiting cb at this time. Pt alert and oriented and able to make needs known. RR even and unlabored. VSS. CB in reach. Lungs cta. S1,S2, has been NSR. Mx continues.
[2019-12-30 13:06] LABS: Covid-19 Nasal PCR Sendout Lex Not Detected
--- NOTE | 2019-12-30 14:47 | PC.NURSE ---
Received order for nystatin swish and swallow per aug r/t pt c/o of mouth/lip being sore. Did note thick white coat on pts tongue as well. Have faxed med order to pharm.
--- NOTE | 2019-12-30 15:22 | PC.NURSE ---
Spoke with Polo Guardado, and she stated [employer] APRN stated ok to cancel stool specimen, noted.
[2019-12-30 16:04] LABS: POC Glucose,Bedside 133 (70-110)
--- NOTE | 2019-12-30 17:11 | PC.NURSE ---
Pt could benefit from rolling walker rather than cane to aid in mobility and gait for safety purposes.
--- NOTE | 2019-12-30 17:29 | SW/DCPLANNER ---
I have spoke with this patient regarding discharge plans. Patient stated that she resides with her parents in [place] and works part-time. Patient stated that she intends to return back home at time of discharge. Patient also stated that she has been using a rolling walker during her admission and could benefit from a rolling walker at time of discharge. I will fax patient information/order to [facility] for a rolling walker this evening to be delivered tomorrow. Patient has also shown an interest in home health services to regain her strength when she returns home. Patient prefers to use [facility] (first) or [facility] (next). Home Health services will be set up at time of discharge. Patient stated that she could potentially be ready for discharge tomorrow.
[2019-12-30 21:57] LABS: POC Glucose,Bedside 142 (70-110)
[2019-12-31] VITALS (12 sets, daily range): BP systolic 119–135; BP diastolic 74–93; PULSE 79–88; RESP 16–24; TEMP 36.5–37.1; O2SAT 95–98; BMI 32.3
--- NOTE | 2019-12-31 02:55 | PC.NURSE ---
A&O X4. NO ACUTE CHANGES NOTED THIS SHIFT. PT HAS RESTED WELL WITH EYES CLOSED THIS SHIFT WITH NO COMPLAINTS. CLEAR BREATH SOUNDS NOTED UPON AUSCULTATION. NO EDEMA NOTED. NSR AND SINUS TACH NOTED ON PRINTMAKER. REFUSED TEDS. VSS. REMAINS SAFE. CALL LIGHT WITHIN REACH. WILL CONTINUE TO MONITOR.
[2019-12-31 06:32] LABS: Basophils # 0.1 K/mm3 (0-0.2); Basophils % 0.5 % (0.1-2.0); Eosinophils # 0.2 K/mm3 (0.0-0.4); Eosinophils % 2.7 % (0.1-12.0); Hematocrit 29.3 % (37.0-47.0); Hemoglobin 9.8 g/dL (12.2-16.2); Lymphocytes # 3.2 K/mm3 (0.7-4.5); Lymphocytes % 37.2 % (10-50); Mean Corpuscular HGB Conc 33.3 g/dL (31.8-35.4); Mean Corpuscular Hemoglobin 29.5 pg (27.0-31.2); Mean Corpuscular Volume 88.4 fl (81-99); Mean Platelet Volume 8.4 fl (7.4-10.4); Monocytes # 0.3 K/mm3 (0.1-1.0); Monocytes % 3.5 % (1.7-9.3); Neutrophils # 4.9 K/mm3 (1.8-7.8); Neutrophils % 56.1 % (37.0-80.0); Platelet Count 225 K/mm3 (142-424); Red Blood Count 3.31 M/mm3 (4.20-5.40); Red Cell Distribution Width 14.9 % (11.5-17.5); White Blood Count 8.7 K/mm3 (4.8-10.8)
[2019-12-31 06:34] LABS: Chloride 97 mmol/L (98-107); Sodium 137 mmol/L (136-145)
[2019-12-31 06:37] LABS: Anion Gap 10.9 mEq/L (5-15); Blood Urea Nitrogen 10 mg/dl (7-17); Carbon Dioxide 32 mmol/L (22.0-30.0); Creatinine Clearance Estimated 138 mL/min (50-200); Estimated Glomerular Filt Rate 90 ml/min (>60); GFR (African American) 109 ML/MIN (>60); Glucose 137 mg/dl (74-100)
[2019-12-31 06:46] LABS: Potassium 2.9 mmoL/L (3.5-5.1)
--- NOTE | 2019-12-31 09:36 | HMH.ACPN2 ---
Internal Medicine - PN: Subj *Date: 12/31/19 *Time: 09:40 Interval history: Patient continues to have global weakness, especially in the legs. Off the Levophed. Remains on Invanz. He is hypokalemic this morning at 2.9. Blood culture urine culture chest x-ray have been negative. She is at a good baseline level of consciousness. Exam Vital signs and Labs for Last 24 Hours: Temp Pulse Resp BP Pulse Ox 98.3 F 80 17 135/93 H 96 12/31/19 07:54 12/31/19 08:00 12/31/19 07:54 12/31/19 07:54 12/31/19 07:54 Laboratory Results - last 24 hr 12/28/19 19:15: SARS-CoV-2 (PCR) Not detected 12/30/19 11:18: POC Glucose 140 H 12/30/19 15:44: POC Glucose 133 H 12/30/19 21:39: POC Glucose 142 H 12/31/19 06:23: WBC 8.7, RBC 3.31 L, Hgb 9.8 L, Hct 29.3 L, MCV 88.4, MCH 29.5, MCHC 33.3, RDW 14.9, Plt Count 225, MPV 8.4, Neut % (Auto) 56.1, Lymph % (Auto) 37.2, [place] % (Auto) 3.5, Eos % (Auto) 2.7, Baso % (Auto) 0.5, Neut # (Auto) 4.9, Lymph # (Auto) 3.2, [place] # (Auto) 0.3, Eos # (Auto) 0.2, Baso # (Auto) 0.1 12/31/19 06:23: Sodium 137, Potassium 2.9 L*, Chloride 97 L, Carbon Dioxide 32 H D, Anion Gap 10.9, BUN 10 D, Creatinine 0.70 D, Estimated Creat Clear 138, Estimated GFR 90, Est GFR ( Amer) 109 D, Glucose 137 H, Calcium 8.0 L I & O for Last 24 hours: Intake & Output 12/28/19 12/29/19 12/30/19 12/31/19 23:59 23:59 23:59 23:59 Intake Total 3100 / 3100 3280 / 3280 2604 / 2604 1114 / 1114 Output Total 5200 / 5200 1150 / 1150 Balance 3100 / 2500 -1920 / -1920 1454 / 1454 1114 / 1114 Weight 190 lb 14.725 oz 191 lb 12.835 oz 191 lb 5.004 oz 194 lb 3 oz Microbiology Reports for the Last 24 Hours: Microbiology 12/28/19 19:02 Blood Blood Culture - Preliminary NO GROWTH AFTER 48 HOURS 12/28/19 19:02 Blood Blood Culture - Preliminary NO GROWTH AFTER 48 HOURS 12/28/19 19:40 Urine,Random Urine Culture - Final Multiple organisms, suggests contamination. - Constitutional no acute distress - *Routine HEENT Exam Head: Present: normocephalic, atraumatic - *Routine Neck Exam Present: supple. Absent: JVD - *Routine Respiratory Exam Present: CTA bilaterally. Absent: accessory muscle use - *Routine Cardiovascular Exam Present: RRR. Absent: murmur - *Routine Abdominal Exam Present: soft. Absent: organomegaly - *Routine Extremities Exam Absent: cyanosis, clubbing, edema, calf tenderness - *Routine Skin Exam Present: intact. Absent: cyanosis, jaundice - *Routine Neurological Exam Present: alert, oriented X3 - Routine Psychiatric Exam Present: normal affect Assessment and Plan (1) LIZZETH (acute kidney injury) Current visit: Yes Status: Resolved Category: Medical Code(s): N17.9 - Acute kidney failure, unspecified (2) Elevated C-reactive protein (CRP) Current visit: Yes Status: Acute Category: Medical Code(s): R79.82 - Elevated C-reactive protein (CRP) (3) Elevated erythrocyte sedimentation rate Current visit: Yes Status: Acute Category: Medical Code(s): R70.0 - Elevated erythrocyte sedimentation rate (4) Obesity (BMI 30.0-34.9) Current visit: Yes Status: Acute Category: Medical Code(s): E66.9 - Obesity, unspecified (5) Septic shock Current visit: Yes Status: Resolved Category: Medical Code(s): A41.9 - Sepsis, unspecified organism; R65.21 - Severe sepsis with septic shock (6) Severe sepsis with acute organ dysfunction Current visit: Yes Status: Acute Category: Medical Code(s): A41.9 - Sepsis, unspecified organism; R65.20 - Severe sepsis without septic shock (7) UTI (urinary tract infection) Current visit: Yes Status: Acute Qualifiers: Urinary tract infection type: site unspecified Hematuria presence: without hematuria Qualified Code(s): N39.0 - Urinary tract infection, site not specified Category: Medical Code(s): N39.0 - Urinary
--- NOTE | 2019-12-31 11:38 | PC.NURSE ---
Called and spoke with Elsy at primary care in RE to pt c/o of mouth being sore and around lips ulcers noted. Awaiting cb at this time. Pt does state that nystatin has helped with inside of mouth.
[2019-12-31 11:52] LABS: POC Glucose,Bedside 145 (70-110)
--- NOTE | 2019-12-31 14:23 | SW/DCPLANNER ---
PENDING DISCHARGE IN THE AM ()... PATIENT NOT MEDICALLY READY TO DISCHARGE HOME TODAY... MD WANTS PATIENT UP OUT OF BED AND REPLACING HER K+......
[2019-12-31 15:49] LABS: POC Glucose,Bedside 113 (70-110)
--- NOTE | 2019-12-31 19:01 | PC.NURSE ---
report given to federico
--- NOTE | 2019-12-31 19:02 | PC.NURSE ---
Pt alert and oriented no complaints at this time. RR even and unlabored. NSR. CB in reach. IV attempted x 3 to be changed. PT does have same IV in LAC and wants to keep IV at this time instead of changing. Will report shift report to RN.
[2019-12-31 22:38] LABS: POC Glucose,Bedside 123 (70-110)
[2020-01-01] VITALS: PULSE 80
--- NOTE | 2020-01-01 03:15 | PC.NURSE ---
A&OX4. PT HAS TOLERATED ROOM AIR WELL THROUGHOUT SHIFT. RESPIRATIONS REGULAR AND UNLABORED. LUNG SOUNDS BILATERALLY CLEAR. PT HAS BEEN ON TELE THROUGHOUT SHIFT. NSR NOTED. NO EDEMA NOTED. HAND PROPERTY STAFF ACCOUNTANT EQUAL. +2 PULSES NOTED THROUGHOUT. NS INFUSING AT 100ML/HR. ACTIVE BOWEL SOUNDS HEARD IN ALL 4 QUADRANTS. SOFT AND NONTENDER ABDOMEN. PT AMBULATES TO THE RESTROOM WITH STANDBY WALKER. STEADY GAIT NOTED. BRIGHT YELLOW CLEAR URINE NOTED IN MEASURING HAT. NO BM REPORTED THUS FAR. PAIN REPORTED IN BILATERAL KNEES RATING 6/10 AT BEGINNING OF SHIFT. PT WAS ADMINISTERED TYLENOL 650MG NEEDED PER AUG. PT STATED PAIN WAS TOLERABLE ON REASSESSMENT. PT CURRENTLY RESTING IN BED W CALL LIGHT WITHIN REACH. BED IN LOWEST POSITION. VSS. NO CONCERNS AT THIS TIME. WILL CONTINUE TO MONITOR.
[2020-01-01 03:36] LABS: POC Glucose,Bedside 141 (70-110)
[2020-01-01 04:00] VITALS: BP 118/75; PULSE 80; PULSE 82; RESP 18; TEMP 36.7; O2SAT 90
[2020-01-01 05:00] VITALS: BMI 33.0
[2020-01-01 06:56] LABS: POC Glucose,Bedside 120 (70-110)
[2020-01-01 07:42] VITALS: BP 147/86; PULSE 87; RESP 20; TEMP 37; O2SAT 96
[2020-01-01 08:00] VITALS: PULSE 80
[2020-01-01 08:10] LABS: Chloride 97 mmol/L (98-107); Sodium 138 mmol/L (136-145)
[2020-01-01 08:12] LABS: Blood Urea Nitrogen 6 mg/dl (7-17); Creatinine Clearance Estimated 141 mL/min (50-200); Estimated Glomerular Filt Rate 90 ml/min (>60); GFR (African American) 109 ML/MIN (>60)
[2020-01-01 08:13] LABS: Alanine Aminotransferase 23 U/L (12-78); Albumin Level 2.9 g/dl (3.5-5.0); Albumin/Globulin Ratio 0.8 (1.1-1.8); Alkaline Phosphatase 223 U/L (38-126); Aspartate Amino Transferase 38 U/L (14-36); Bilirubin,Total 0.3 mg/dl (0.2-1.3); Calcium 8.2 mg/dl (8.4-10.2); Carbon Dioxide 35 mmol/L (22.0-30.0); Globulin 3.6 g/dL (1.3-3.2); Glucose 134 mg/dl (74-100); Total Protein,Serum 6.5 g/dl (6.3-8.2)
[2020-01-01 08:51] VITALS: PULSE 87; RESP 20; O2SAT 96
--- NOTE | 2020-01-01 09:24 | HMH.DCSUM ---
General - General Admission date:: 12/28/19 Discharge date: 01/01/20 HPI HPI: this pt presented to the ed with dec po intake and fever - she has been seen in the er earlier with dx of uti - his is a 49-year-old female who presents with intractable nausea and vomiting as well as fever and chills. Patient denies any abdominal pain at this time. She reports being seen in the ED approximately 4 days ago diagnosed with urinary tract infection but has been unable to keep her antibiotics down. She also reports little to no p.o. intake over the last few days. She denies diarrhea but reports that the stools have been somewhat loose. She denies any significant dysuria or flank pain. No hematuria or hematochezia. Vomitus mostly includes only foodstuffs that she had eaten prior. Fever up to 102. She also reports generalized weakness and malaise as well as body aches. No significant cough. No headache. pt was admitted with letha and sepsis Hospital Course Hospital Course: On December 28 patient remains on Levophed but weaning. Remains on Invanz cultures pending,white blood cells 10.4 creatinine improving from 3.0-2.0. Patient is more alert and improving per staff. December 29 patient has Levophed weaned off with a blood pressure of 109/72 remains on Invanz no fever overnight. Cultures pending. December 30 patient complaining of weakness in the lower legs Levophed is remained off still on Invanz urine culture shows mixed organisms, blood cultures negative UAs negative and potassium 2.92 rounds of IV potassium given.Today patient states she feels well today and would like to go home. Potassium improved to 3.0 oral potassium ordered and will be discharged home with oral potassium. Patient will be discharged home with physical therapy via home health to help with weakness and to help regain strength. Laboratory Tests 12/28/19 12/28/19 12/28/19 19:02 19:02 19:02 WBC 12.6 H RBC 3.74 L Hgb 11.1 L Hct 33.0 L MCV 88.2 MCH 29.6 MCHC 33.5 RDW 14.6 Plt Count 256 MPV 8.3 Neut % (Auto) 92.1 H Lymph % (Auto) 5.8 L Hudspeth % (Auto) 1.6 L Eos % (Auto) 0.4 Baso % (Auto) 0.1 Neut # (Auto) 11.6 H Lymph # (Auto) 0.7 Hudspeth # (Auto) 0.2 Eos # (Auto) 0.1 Baso # (Auto) 0.0 Total Counted 100 Neutrophils % (Manual) 82 H Band Neutrophils % 14.0 H Lymphocytes % (Manual) 4 L Platelet Estimate Normal RBC Morphology Normal Rouleaux 1+ ESR VBG pH VBG pCO2 VBG pO2 VBG HCO3 VBG Total CO2 VBG O2 Saturation VBG Base Excess Sodium 132 L Potassium 3.3 L Chloride 89 L Carbon Dioxide 26 Anion Gap 20.3 H BUN 35 H Creatinine 3.00 H Estimated Creat Clear 30 Estimated GFR 17 L* Est GFR ( Amer) 20 L Glucose 187 H POC Glucose Lactate 2.0 Calcium 8.8 Total Bilirubin 1.6 H AST 35 ALT 25 Alkaline Phosphatase 179 H C-Reactive Protein Total Protein 7.9 Albumin 3.6 Globulin 4.3 H Albumin/Globulin Ratio 0.8 L Urine Color Urine Appearance Urine pH Ur Specific Henriette Urine Protein Urine Glucose (UA) Urine Ketones Urine Blood Urine Nitrate Urine Bilirubin Urine Urobilinogen Ur Leukocyte Esterase Urine RBC Urine WBC Ur Squamous Epith Cells Amorphous Sediment Chlamy pneumoniae PCR Adenovirus (PCR) B. pertussis DNA (PCR) Coronavirus OC43 (PCR) Coronavirus HKU1 (PCR) Coronavirus 229E (PCR) COVID-19 PCR Coronavirus NL63 (PCR) Human Metapneumovir PCR Influenza A (H1) PCR Influ A (H1N1/09) PCR Influenza A (H3) PCR Influenza Type A (PCR) Influenza Type B (PCR) M. pneumoniae (PCR) Parainfluenza 1 (PCR) Parainfluenza 2 (PCR) Parainfluenza 3 (PCR) Parainfluenza 4 (PCR) RSV (PCR) Entero/Rhino (PCR) SARS-CoV-2 (PCR) 12/28/19 12/28/19 12/28/19 19:02 1
--- NOTE | 2020-01-01 09:40 | SW/DCPLANNER ---
Addendum entered by Oanh Rosa 01/01/20 10:30: Radha with [facility] has called stating that patient information has been received and reviewed and services will begin this week for this patient. Patient is aware. Patient will discharge home today. Original Note: This patient will discharge home today. I have already set this patient up with a rolling walker thru [facility] and this has been delivered to patients room. I will also set this patient up with [facility]. Patient will discharge home today. I will follow up with Ruddy from [facility] once patient information is reviewed.
--- NOTE | 2020-01-01 10:07 | HMH.ACPN ---
Internal Medicine - PN: Subj *Date: 01/01/20 *Time: 10:07 Exam Vital signs and Labs for Last 24 Hours: Temp Pulse Resp BP Pulse Ox 98.6 F 80 20 147/86 H 96 01/01/20 07:42 01/01/20 08:00 01/01/20 07:42 01/01/20 07:42 01/01/20 07:42 Laboratory Results - last 24 hr 12/31/19 05:24: POC Glucose 141 H 12/31/19 11:13: POC Glucose 145 H 12/31/19 15:23: POC Glucose 113 H 12/31/19 20:18: POC Glucose 123 H 01/01/20 06:33: POC Glucose 120 H 01/01/20 07:55: Sodium 138, Potassium 3.0 L, Chloride 97 L, Carbon Dioxide 35 H, Anion Gap 9.0, BUN 6 L D, Creatinine 0.70, Estimated Creat Clear 141, Estimated GFR 90, Est GFR ( Amer) 109, Glucose 134 H, Calcium 8.2 L, Total Bilirubin 0.3, AST 38 H, ALT 23, Alkaline Phosphatase 223 H, Total Protein 6.5, Albumin 2.9 L, Globulin 3.6 H, Albumin/Globulin Ratio 0.8 L I & O for Last 24 hours: Intake & Output 12/29/19 12/30/19 12/31/19 01/01/20 23:59 23:59 23:59 23:59 Intake Total 3280 / 3280 2604 / 2604 2794 / 2794 1135 / 1135 Output Total 5200 / 5200 1150 / 1150 1500 / 1500 700 / 700 Balance -1920 / -1920 1454 / 1454 1294 / 1294 435 / 435 Weight 87 kg 86.778 kg 88.082 kg 89.84 kg Assessment and Plan (1) LIZZETH (acute kidney injury) Current visit: Yes Status: Resolved Category: Medical Code(s): N17.9 - Acute kidney failure, unspecified (2) Elevated C-reactive protein (CRP) Current visit: Yes Status: Acute Category: Medical Code(s): R79.82 - Elevated C-reactive protein (CRP) (3) Elevated erythrocyte sedimentation rate Current visit: Yes Status: Acute Category: Medical Code(s): R70.0 - Elevated erythrocyte sedimentation rate (4) Obesity (BMI 30.0-34.9) Current visit: Yes Status: Acute Category: Medical Code(s): E66.9 - Obesity, unspecified (5) Septic shock Current visit: Yes Status: Resolved Category: Medical Code(s): A41.9 - Sepsis, unspecified organism; R65.21 - Severe sepsis with septic shock (6) Severe sepsis with acute organ dysfunction Current visit: Yes Status: Acute Category: Medical Code(s): A41.9 - Sepsis, unspecified organism; R65.20 - Severe sepsis without septic shock (7) UTI (urinary tract infection) Current visit: Yes Status: Acute Qualifiers: Urinary tract infection type: site unspecified Hematuria presence: without hematuria Qualified Code(s): N39.0 - Urinary tract infection, site not specified Category: Medical Code(s): N39.0 - Urinary tract infection, site not specified (8) Hypokalemia Current visit: Yes Status: Acute Category: Medical Code(s): E87.6 - Hypokalemia The patient's infection will respond to the chosen ABx?: No (CULTURES ARE NEGATIVE) Is the patient receiving the right drug, dose, and route?: No Could a more targeted ABx be ordered?: No (PATIENT IS DISCHARGED HOME TODAY WITH NO ANTIBIOTICS)
--- NOTE | 2020-01-01 10:09 | HMH.PHAINT ---
PATIENT WAS COUNSELED ON NEW MEDICATIONS: POTASSIUM AND ACYCLOVIR OINTMENT. THE PATIENT WILL CONTINUE ALL HOME MEDICATIONS EXCEPT CIPROFLOXACIN. THE PATIENT DID NOT HAVE ANY QUESTIONS.
[2020-01-01 11:07] VITALS: BP 137/93; PULSE 81; RESP 19; TEMP 36.7; O2SAT 96
== END 2020-01-01 11:50 | disposition home health service (06) | DRG 689 ==
LOC: ER 22:09 → 2ND 22:13
PROVIDERS: Family Medicine; Nurse Practitioner Family; Admitting Provider Emergency Medicine; Emergency Provider Emergency Medicine; PCP Emergency Medicine; Visit Provider Emergency Medicine
DX: N39.0 Urinary tract infection, site not specified (principal); A41.9 Sepsis, unspecified organism; R65.20 Severe sepsis without septic shock; N17.9 Acute kidney failure, unspecified; I10 Essential (primary) hypertension; E11.9 Type 2 diabetes mellitus without complications; Z79.84 Long term (current) use of oral hypoglycemic drugs; Z79.51 Long term (current) use of inhaled steroids; Z79.899 Other long term (current) drug therapy; Z88.1 Allergy status to other antibiotic agents; M06.9 Rheumatoid arthritis, unspecified
CPT/HCPCS: 36415; 71045; 74176; 80048; 80053; 81001; 82803; 82962; 83605; 85007; 85025; 85651; 86140; 87040; 87086; 87581; 87633; 87798; 90732; 96365; 96366; 96367; 96375; 99285; J1335; J1956; J2405; U0004

== ENCOUNTER 2020-01-03 17:01 | Emergency (ER) | payer BC, SELFPAY ==
[2020-01-03 17:02] VITALS: BP 133/92; PULSE 91; RESP 16; TEMP 38.2; O2SAT 98; BMI 34.0
--- NOTE | 2020-01-03 17:21 | XR_ITS ---
PROCEDURE: XR CHEST PORTABLE Patient Age:49Y CLINICAL HISTORY: cough vomiting. COMPARISON: CXR CHEST(2 VIEWS-NOT PORTABLE) from 03/09/[address] abdomen pelvis w con from 08/19/2017 CT ABDOMEN PELVIS WO CON from 12/28/2019 XR CHEST PORTABLE from 12/28/2019 FINDINGS: Elevation right hemidiaphragm which is similar to slightly more pronounced than on 12/28/2019 CXR. Suspect elevated diaphragm in part due to the hepatomegaly evident on prior CT.. Period with this there does appear to be some linear atelectasis at the right lung base. Subtle blunting suggested at both right and left CP angle possibly reflect tiny small pleural effusions on today's exam However the pulmonary vascularity appears normal today. No CHF.. The heart with borderline-mild cardiomegaly with left ventricular configuration. Heart shadow appears larger than on 2017 two-view CXR. The khari and mediastinal structures appears satisfactory. Chest wall unremarkable. No focal pneumonia IMPRESSION: No focal pneumonia. Elevation right hemidiaphragm a similar to slightly more evident. Suggestion of possible subtle blunting at CP angles but cannot exclude scant pleural effusions. Borderline-to perhaps mild cardiomegaly, but with normal pulmonary vascularity. Dictated by: Ceasar Salvador MD 01/04/2020 12:04 Electronically signed by Ceasar Salvador MD in [place] 01/04/2020 12:04
--- NOTE | 2020-01-03 17:35 | HMH.EDNVD ---
ED Disposition Clinical Impression: UTI (urinary tract infection) Qualifiers: Urinary tract infection type: acute cystitis Hematuria presence: with hematuria Qualified Code(s): N30.01 - Acute cystitis with hematuria Disposition: Home, Self-Care Condition on Discharge: Good Instructions: DI for Diarrhea and Traveler's Diarrhea -- Adult, DI for Diarrhea and Traveler's Diarrhea -- Child, DI for Nausea -- Adult, DI for Nausea -- Child Prescriptions: levoFLOXacin [Levofloxacin 500MG Tab] 500 mg PO DAILY #7 tab Transmission Status: Pending to [id number] Referrals: Hubert Medley MD [Primary Care Provider] - - Critical Care Critical Care Time: No Attestation: On 01/03/20, the high probability of a clinically significant, sudden or life threatening deterioration of the following system(s) required my full and direct attention, intervention and personal management. The time I documented below is in addition to time spent performing reported procedures but includes the following listed in this critical care notation. Medical Decision Making - Medical Records Medical records reviewed: Yes: I reviewed the patient's medical records. - Hugo Inquiry Pt receiving controlled substance: No Vital Signs: 01/03/20 17:02 Temperature 100.8 F H Temperature Source Oral Pulse Rate [Radial] 91 H Respiratory Rate 16 Blood Pressure [Right Arm] 133/92 H Blood Pressure Mean [Right Arm] 105 Blood Pressure Source [Right Arm] Automatic Cuff Blood Pressure Position [Right Arm] Sitting 02 Sat by Pulse Oximetry 98 Oxygen Delivery Method Room Air - Lab Data Lab results reviewed: Yes: I reviewed the patient's lab results. Lab Results 01/03/20 17:40: WBC 16.2 H, RBC 4.26, Hgb 12.5, Hct 38.1, MCV 89.3, MCH 29.3, MCHC 32.8, RDW 15.4, Plt Count 455 H D, MPV 9.2, Neut % (Auto) 88.5 H, Lymph % (Auto) 6.9 L, Villalba % (Auto) 3.5, Eos % (Auto) 0.5, Baso % (Auto) 0.5, Neut # (Auto) 14.3 H, Lymph # (Auto) 1.1, Villalba # (Auto) 0.6, Eos # (Auto) 0.1, Baso # (Auto) 0.1, Total Counted 100, Neutrophils % (Manual) 84 H, Lymphocytes % (Manual) 10, Monocytes % (Manual) 6, Platelet Estimate Slight increase, RBC Morphology Normal 01/03/20 17:40: Sodium 137, Potassium 3.3 L, Chloride 93 L, Carbon Dioxide 32 H, Anion Gap 15.3 H, BUN 11 D, Creatinine 0.60, Estimated Creat Clear 149, Estimated GFR 107, Est GFR ( Amer) 130, Glucose 139 H, Calcium 9.8 D, Total Bilirubin 0.7, AST 40 H, ALT 26, Alkaline Phosphatase 202 H, Total Protein 8.5 H D, Albumin 3.9, Globulin 4.6 H, Albumin/Globulin Ratio 0.8 L, Lipase 244 01/03/20 19:30: Urine Color Yellow, Urine Appearance Sl cloudy, Urine pH 6.0, Ur Specific Hadley 1.025, Urine Protein Trace, Urine Glucose (UA) Negative, Urine Ketones Negative, Urine Blood 2+, Urine Nitrate Negative, Urine Bilirubin Negative, Urine Urobilinogen 0.2, Ur Leukocyte Esterase Trace, Urine RBC 10-20, Urine WBC 5-10, Amorphous Sediment Trace, Urine Mucus 4+ Result diagrams: 01/03/20 17:40 01/03/20 17:40 Orders (Tests/Meds): ED MEDICATIONS Generic Name Dose Route Start Last Admin Trade Name Freq PRN Reason Stop Dose Admin Sodium Chloride 1,000 mls @ 999 mls/hr 01/03/20 17:30 01/03/20 17:46 Sod Chlor 0.9% 1000ml Bag IV 01/03/20 18:30 999 mls/hr .Q1H1M KALYANI Administration Discontinued Medications Generic Name Dose Route Start Last Admin Trade Name Freq PRN Reason Stop Dose Admin Ertapenem 1 gm/ Sodium 50 mls @ 100 mls/hr 01/03/20 19:49 Chloride IV 01/03/20 19:50 ONCE ONE Protocol Ondansetron HCl 8 mg 01/03/20 17:21 01/03/20 17:45 Zofran 4mg/2ml Vial IV 01/03/20 17:22 8 mg ONCE ONE Administration ORDERS Category Date Time Status XR chest portable Stat Exams 01/03/20 17:21 Taken Lactic Acid Stat Lab 01/03/20 17:21 Ordered Blood Culture Stat Micro 01/03/20 17:22 Ordered Nausea/Vomiting/Diarrhea HPI - General Chief complaint: Nausea/Vomiting/Diarrhea Stated complai
[2020-01-03 17:55] LABS: Basophils # 0.1 K/mm3 (0-0.2); Basophils % 0.5 % (0.1-2.0); Eosinophils # 0.1 K/mm3 (0.0-0.4); Eosinophils % 0.5 % (0.1-12.0); Hematocrit 38.1 % (37.0-47.0); Hemoglobin 12.5 g/dL (12.2-16.2); Lymphocytes # 1.1 K/mm3 (0.7-4.5); Lymphocytes % 6.9 % (10-50); Mean Corpuscular HGB Conc 32.8 g/dL (31.8-35.4); Mean Corpuscular Hemoglobin 29.3 pg (27.0-31.2); Mean Corpuscular Volume 89.3 fl (81-99); Mean Platelet Volume 9.2 fl (7.4-10.4); Monocytes # 0.6 K/mm3 (0.1-1.0); Monocytes % 3.5 % (1.7-9.3); Neutrophils # 14.3 K/mm3 (1.8-7.8); Neutrophils % 88.5 % (37.0-80.0); Platelet Count 455 K/mm3 (142-424); Red Blood Count 4.26 M/mm3 (4.20-5.40); Red Cell Distribution Width 15.4 % (11.5-17.5); White Blood Count 16.2 K/mm3 (4.8-10.8)
[2020-01-03 18:01] LABS: MANUAL DIFFERENTIAL MANUAL DIFFERENTIAL (MANUAL DIFF)
[2020-01-03 18:13] LABS: Lymphocytes % 10 % (10-50); Monocytes % 6 % (2-9); Neutrophils % 84 % (42-76); Platelet Estimate Slight Increase; RBC Morphology Normal; Total Cells Counted 100
[2020-01-03 18:36] LABS: Chloride 93 mmol/L (98-107); Potassium 3.3 mmoL/L (3.5-5.1); Sodium 137 mmol/L (136-145)
[2020-01-03 18:38] LABS: Alanine Aminotransferase 26 U/L (12-78); Aspartate Amino Transferase 40 U/L (14-36); Blood Urea Nitrogen 11 mg/dl (7-17); Creatinine Clearance Estimated 149 mL/min (50-200); Estimated Glomerular Filt Rate 107 ml/min (>60); GFR (African American) 130 ML/MIN (>60)
[2020-01-03 18:39] LABS: Albumin Level 3.9 g/dl (3.5-5.0); Albumin/Globulin Ratio 0.8 (1.1-1.8); Alkaline Phosphatase 202 U/L (38-126); Anion Gap 15.3 mEq/L (5-15); Bilirubin,Total 0.7 mg/dl (0.2-1.3); Carbon Dioxide 32 mmol/L (22.0-30.0); Globulin 4.6 g/dL (1.3-3.2); Glucose 139 mg/dl (74-100); Lipase 244 U/L (23-300); Total Protein,Serum 8.5 g/dl (6.3-8.2)
[2020-01-03 18:43] LABS: Calcium 9.8 mg/dl (8.4-10.2)
[2020-01-03 19:41] LABS: Microscopic, Urine URINE MICROSCOPIC (MICROSCOPIC)
[2020-01-03 19:43] LABS: Appearance,Urine SL CLOUDY (Clear); Bilirubin,Urine Negative (Negative); Blood, Urine 2+ (Negative); Color,Urine YELLOW (Yellow); Glucose,Urine (UA) Negative (Negative); Ketones,Urine Negative (Negative); Leukocyte Esterase,Urine TRACE (Negative); Nitrate,Urine Negative (Negative); Protein,Urine TRACE (Negative); Specific Gravity, Urine 1.025 (1.005-1.030); Urobilinogen,Urine 0.2 EU/dl (0.2)
[2020-01-03 19:46] LABS: Amorphous Sediment,Urine Trace /lpf; Mucus,Urine 4+ /lpf
[2020-01-03 20:04] VITALS: BP 131/95; PULSE 89; RESP 16; TEMP 36.7; O2SAT 98
== END 2020-01-03 20:16 | disposition home or self-care (01) ==
PROVIDERS: Emergency Provider Emergency Medicine; PCP Emergency Medicine
DX: N30.01 Acute cystitis with hematuria (principal); E11.9 Type 2 diabetes mellitus without complications; I10 Essential (primary) hypertension; F41.9 Anxiety disorder, unspecified; Z88.1 Allergy status to other antibiotic agents; Z88.2 Allergy status to sulfonamides
CPT/HCPCS: 71045; 80053; 81001; 83690; 85007; 85025; 96365; 96367; 96375; 99283; J1335; J2405

== ENCOUNTER 2022-05-15 14:50 | Emergency (ER) | payer BC, SELFPAY ==
--- NOTE | 2022-05-15 16:53 | EXP.UTC ---
Discharge Plan Disposition Patient Disposition: Home, Self-Care Condition: Good Prescriptions Prescriptions: New benzonatate [benzonatate] 100 mg capsule 100 mg PO TIDP PRN (Reason: Cough) Qty: 30 0RF methylprednisolone 4 mg Tablets,Dose Pack 4 mg PO DIRECTED Qty: 21 0RF azithromycin [Zithromax] 250 mg tablet 250 mg PO UD DOSE PK Qty: 6 0RF Rx Instructions: Take two (2) tablets today, then one (1) tablet days #2 thru #5 No Action hydroxychloroquine 200 mg tablet 400 mg PO DAILY Rx Instructions: GIVE WITH FOOD omeprazole 40 mg capsule,delayed release(DR/EC) 80 mg PO DAILY albuterol sulfate 90 mcg/actuation HFA aerosol inhaler See Rx Instructions .ROUTE .COMPLEX Qty: 18 0RF Dose Instruction: INHALE 2 PUFFS BY MOUTH EVERY 4 TO 6 HOURS NEEDED FOR SHORTNESS OF BREATH OR WHEEZING Rx Instructions: INHALE 2 PUFFS BY MOUTH EVERY 4 TO 6 HOURS NEEDED FOR SHORTNESS OF BREATH OR WHEEZING (DME) Ultra Thin Lancets 31 gauge misc See Rx Instructions .ROUTE .MEDSUPPLY Qty: 100 2RF Rx Instructions: Test sugar three times daily losartan 50 mg tablet See Rx Instructions .ROUTE .COMPLEX Qty: 90 0RF Dose Instruction: Take 1 tablet by mouth once daily for blood pressure Rx Instructions: Take 1 tablet by mouth once daily for blood pressure hydrochlorothiazide 12.5 mg tablet See Rx Instructions .ROUTE .COMPLEX Qty: 90 0RF Dose Instruction: Take 1 tablet by mouth once daily for blood pressure Rx Instructions: Take 1 tablet by mouth once daily for blood pressure atorvastatin 10 MG tablet 10 mg PO QHS paroxetine HCl 20 MG tablet 20 mg PO DAILY Rx Instructions: TAKE 1 TABLET BY MOUTH ONCE DAILY FOR ANXIETY metformin 500 MG tablet extended release 24 hr 500 mg PO BID Rx Instructions: GIVE 1 TABLET WITH BREAKFAST AND 1 TABLET WITH DINNER azathioprine 50 MG tablet 100 mg PO BID potassium chloride 20 MEQ tablet 20 meq PO BID 4 Days Qty: 8 0RF acyclovir 5 GM ointment 0 gm TP Q3HWA 0RF ibuprofen 800 MG tablet 800 mg PO Q8HP PRN (Reason: Moderate Pain) Qty: 15 0RF levofloxacin 500 MG tablet 500 mg PO DAILY Qty: 7 0RF ondansetron 4 MG tablet,disintegrating 4 mg PO Q6HP PRN (Reason: Nausea) Qty: 30 0RF Referrals Follow up/Referrals: Viola Lobo MD [Primary Care Provider] - See instructions Activity Restrictions/Add. Instructions Additional Instructions/Restrictions: Drink plenty of fluids. Take tylenol or ibuprofen for pain or fever. Take the medications as directed. Follow up with your regular doctor. GO TO THE ER FOR ANY WORSENING SYMPTOMS Clinical Impressions Clinical Impression: Sinusitis, Bronchitis Instructions Patient Instructions: DI for Sinusitis, DI for Acute Bronchitis Discharge ED Provider: Camron Scott [facility] General Stated complaint: head congestion,cough Time Seen by Provider: 05/15/22 16:53 History of Present Illness Provider Complaint: She states that for the past 5 days she has had sinus congestion, chest congestion, sore throat and she has felt bad. Related Data Home Medications Medication Instructions Recorded Confirmed hydroxychloroquine 200 mg tablet 400 mg PO DAILY Rheumatoid 09/02/19 12/29/19 arthritis omeprazole 40 mg capsule,delayed 80 mg PO DAILY GERD 09/02/19 12/29/19 release atorvastatin 10 mg tablet 10 mg PO QHS Cholesterol 12/28/19 12/28/19 metformin 500 mg tablet,extended 500 mg PO BID Diabetes 12/28/19 12/28/19 release 24 hr paroxetine HCl 20 mg tablet 20 mg PO DAILY Anxiety 12/28/19 12/28/19 azathioprine 50 mg tablet 100 mg PO BID Rheumatoid arthritis 12/29/19 12/29/19 Previous Rx's Medication Instructions Recorded ibuprofen 800 mg tablet 800 mg PO Q8HP PRN Moderate Pain 12/24/19 #15 tabs acyclovir 5 % topical ointment 0 gm TP Q3HWA 01/01/20 potassium chloride 20 mEq
[2022-05-15 17:00] VITALS: BP 163/89; PULSE 84; RESP 17; TEMP 37.4; O2SAT 99; BMI 28.3
[2022-05-15 17:43] VITALS: BP 163/89; PULSE 84; RESP 17; TEMP 37.4
[2022-05-15 18:19] LABS: Coronavirus 19, PCR Not Detected (NotDetected); Influenza A, PCR Not Detected (NotDetected); Influenza B, PCR Not Detected (NotDetected)
== END 2022-05-15 17:43 | disposition home or self-care (01) ==
PROVIDERS: Emergency Provider Nurse Practitioner Family; PCP Family Medicine
DX: J40 Bronchitis, not specified as acute or chronic (principal); J32.9 Chronic sinusitis, unspecified
CPT/HCPCS: 99212; C9803; G0463; U0003; U0005

== ENCOUNTER 2022-06-05 17:32 | Emergency (ER) | payer BC, SELFPAY ==
[2022-06-05 18:50] VITALS: BP 129/90; PULSE 78; RESP 18; TEMP 36.9; O2SAT 98; BMI 27.9
--- NOTE | 2022-06-05 20:00 | EXP.UTC ---
Discharge Plan Prescriptions Prescriptions: New levofloxacin 500 mg tablet 500 mg PO DAILY 5 Days Qty: 5 0RF methylprednisolone [Medrol (Ricardo)] 4 mg tablets,dose pack See Rx Instructions .Route .COMPLEX 6 Days Qty: 21 0RF Rx Instructions: taper pack; gentamicin 0.3 % drops 1 drp ophthalmic (eye) Q4H 5 Days Qty: 5 0RF Rx Instructions: apply to eyes as directed benzonatate 100 mg capsule 100 mg PO TID PRN (Reason: cough) Qty: 30 0RF No Action hydroxychloroquine 200 mg tablet 400 mg PO DAILY Rx Instructions: GIVE WITH FOOD omeprazole 40 mg capsule,delayed release(DR/EC) 80 mg PO DAILY albuterol sulfate 90 mcg/actuation HFA aerosol inhaler See Rx Instructions .ROUTE .COMPLEX Qty: 18 0RF Dose Instruction: INHALE 2 PUFFS BY MOUTH EVERY 4 TO 6 HOURS NEEDED FOR SHORTNESS OF BREATH OR WHEEZING Rx Instructions: INHALE 2 PUFFS BY MOUTH EVERY 4 TO 6 HOURS NEEDED FOR SHORTNESS OF BREATH OR WHEEZING (DME) Ultra Thin Lancets 31 gauge misc See Rx Instructions .ROUTE .MEDSUPPLY Qty: 100 2RF Rx Instructions: Test sugar three times daily losartan 50 mg tablet See Rx Instructions .ROUTE .COMPLEX Qty: 90 0RF Dose Instruction: Take 1 tablet by mouth once daily for blood pressure Rx Instructions: Take 1 tablet by mouth once daily for blood pressure hydrochlorothiazide 12.5 mg tablet See Rx Instructions .ROUTE .COMPLEX Qty: 90 0RF Dose Instruction: Take 1 tablet by mouth once daily for blood pressure Rx Instructions: Take 1 tablet by mouth once daily for blood pressure atorvastatin 10 MG tablet 10 mg PO QHS paroxetine HCl 20 MG tablet 20 mg PO DAILY Rx Instructions: TAKE 1 TABLET BY MOUTH ONCE DAILY FOR ANXIETY metformin 500 MG tablet extended release 24 hr 500 mg PO BID Rx Instructions: GIVE 1 TABLET WITH BREAKFAST AND 1 TABLET WITH DINNER azathioprine 50 MG tablet 100 mg PO BID potassium chloride 20 MEQ tablet 20 meq PO BID 4 Days Qty: 8 0RF acyclovir 5 GM ointment 0 gm TP Q3HWA 0RF benzonatate [benzonatate] 100 mg capsule 100 mg PO TIDP PRN (Reason: Cough) Qty: 30 0RF methylprednisolone 4 mg Tablets,Dose Pack 4 mg PO DIRECTED Qty: 21 0RF azithromycin [Zithromax] 250 mg tablet 250 mg PO UD DOSE PK Qty: 6 0RF Rx Instructions: Take two (2) tablets today, then one (1) tablet days #2 thru #5 ibuprofen 800 MG tablet 800 mg PO Q8HP PRN (Reason: Moderate Pain) Qty: 15 0RF levofloxacin 500 MG tablet 500 mg PO DAILY Qty: 7 0RF ondansetron 4 MG tablet,disintegrating 4 mg PO Q6HP PRN (Reason: Nausea) Qty: 30 0RF Referrals Follow up/Referrals: Judith Lobo MD [Primary Care Provider] - See instructions Discharge ED Provider: Cary Wellington [facility] HPI General Stated complaint: congestion, cough Mode of Arrival: Ambulatory Source of Information: Patient Limitations: No Limitations Time Seen by Provider: 06/05/22 20:01 Description of Symptoms (Recalled from Triage Doc. by RN): PATIENT C/O COUGH, CONGESTION, EYE DRAINAGE, HEADACHE, AND EARS POPPING X 1 WEEK HEENT Symptoms (Recalled from RN notes): Yes Resp Symptoms (Recalled from RN notes): Yes Skin Symptoms (Recalled from RN notes): No MS Symptoms (Recalled from RN notes): No Functional Status (Recalled from RN notes): WNL History of Present Illness Provider Complaint: Patient states that she was treated for sinus infection a couple weeks ago States that she is still having sinus congestion, bilateral eye redness and drainage, cough headache and ear fullness and popping States that today her mother was coming in so she came in too to get cehcked Related Data Home Medications Medication Instructions Recorded Confirmed hydroxychloroquine 200 mg tablet 400 mg PO DAILY Rheumatoid 09/02/19 12/29/19 arthritis omeprazole 40 mg capsule,delayed 80 mg PO DAILY GERD
[2022-06-05 20:05] VITALS: BP 129/90; PULSE 78; RESP 18; TEMP 36.9; O2SAT 98
== END 2022-06-05 20:14 | disposition home or self-care (01) ==
LOC: UTC 17:35
PROVIDERS: Emergency Provider Nurse Practitioner; PCP Radiology Diagnostic Radiology
DX: J32.9 Chronic sinusitis, unspecified (principal)
CPT/HCPCS: 99212; G0463

== ENCOUNTER 2022-08-28 15:12 | Emergency (ER) | payer BC, SELFPAY ==
[2022-08-28 15:20] VITALS: BP 124/92; PULSE 95; RESP 20; TEMP 36.9; O2SAT 99; BMI 27.4
--- NOTE | 2022-08-28 15:39 | EXP.UTC ---
Discharge Plan Disposition Patient Disposition: Home, Self-Care Condition: Good Prescriptions Prescriptions: New benzonatate 100 mg capsule 100 mg PO TID PRN (Reason: cough) Qty: 30 0RF azithromycin [Zithromax Z-Ricardo] 250 mg tablet See Rx Instructions .ROUTE .COMPLEX 5 Days Qty: 6 0RF Rx Instructions: For 250 mg dose pack: take 500 mg today (day 1), then 250 mg for 4 days (days 2-5) methylprednisolone [Medrol (Ricardo)] 4 mg tablets,dose pack See Rx Instructions .Route .COMPLEX 6 Days Qty: 21 0RF Rx Instructions: taper pack; promethazine 25 mg tablet 25 mg PO TID PRN (Reason: nausea and vomiting) Qty: 10 0RF No Action hydroxychloroquine 200 mg tablet 400 mg PO DAILY Rx Instructions: GIVE WITH FOOD omeprazole 40 mg capsule,delayed release(DR/EC) 80 mg PO DAILY (DME) Ultra Thin Lancets 31 gauge misc See Rx Instructions .ROUTE .MEDSUPPLY Qty: 100 2RF Rx Instructions: Test sugar three times daily atorvastatin 10 MG tablet 10 mg PO QHS bupropion HCl 75 mg tablet 75 mg PO DAILY Label Comments: TAKE 1 TABLET BY MOUTH TWICE DAILY sertraline 50 mg tablet 50 mg PO DAILY Label Comments: TAKE 3 TABLETS BY MOUTH ONCE DAILY . APPOINTMENT REQUIRED FOR FUTURE REFILLS losartan 50 mg tablet See Rx Instructions .ROUTE .COMPLEX Rx Instructions: Take 1 tablet by mouth once daily for blood pressure albuterol sulfate 90 mcg/actuation HFA aerosol inhaler See Rx Instructions .ROUTE .COMPLEX Rx Instructions: INHALE 2 PUFFS BY MOUTH EVERY 4 TO 6 HOURS NEEDED FOR SHORTNESS OF BREATH OR WHEEZING hydrochlorothiazide 12.5 mg tablet See Rx Instructions .ROUTE .COMPLEX Rx Instructions: Take 1 tablet by mouth once daily for blood pressure Referrals Follow up/Referrals: Viola Lobo MD [Primary Care Provider] - See instructions Activity Restrictions/Add. Instructions Additional Instructions/Restrictions: Start antibiotic today. Be sure to complete entire prescription even if feeling better Monitor temp. Tylenol every 4 hours as needed and / or ibuprofen every 6 hours as needed ( As long as your primary care physician has told you that it ok to take both. For fever/aches/pains ER if no less than 101 despite Tylenol or Motrin Humidifier/vaporizer or hot steamy shower Inhaler every 4-6 hours as needed like we discussed. If unsure how to use it, ask pharmacist to demonstrate how. Should help open airways and improve cough, wheezing, and shortness of breath Mucinex during the day for your cough and cough suppressant only at night. Be sure to drink lots of water. Insurance may not cover a prescriptions for mucinex. Might be cheaper to get 400mg tablets and take 2 tablet in the morning, mid-day and evening with lots of water. *Promethazine DM cough syrup will cause drowsiness. Use only at night. No driving, operating machinery or caring for small children after taking it *Tessalon Perles will not cause drowsiness but use at bedtime to help stop cough so that you may get some rest. *Start steroid today. Helps with inflammation therefore, cough and wheezing. Follow directions on the package. Reviewed side effects. Patient reports taking them before. Follow up IMMEDIATELY for new or worsening of symptoms OR no noticeable improvement over the next 48-72 hours. 911 immediately for any life threatening symptoms such as chest pain or difficulty breathing Clinical Impressions Clinical Impression: Acute bronchitis, Sinusitis Instructions Patient Instructions: Acute Bronchitis, DI for Sinusitis, Sinusitis Discharge ED Provider: Cary [place] [facility] [place] General Stated complaint: Congestion,Sore throat, Wheezing at night Time Seen by Provider: 08/28/22 15:39 History of Present Illness Provider Complaint: Patient states that she has been having sinus congestion and
[2022-08-28 16:00] LABS: UTC Strep Screen (Rapid) Negative (Negative)
[2022-08-28 16:01] LABS: UTC Influenza A Antigen Negative (Negative); UTC Influenza B Antigen Negative (Negative)
[2022-08-28 16:08] VITALS: BP 124/92; PULSE 95; RESP 20; TEMP 36.9; O2SAT 99
== END 2022-08-28 16:07 | disposition home or self-care (01) ==
PROVIDERS: Emergency Provider Nurse Practitioner; PCP Family Medicine
DX: J20.9 Acute bronchitis, unspecified (principal); J01.90 Acute sinusitis, unspecified; E11.9 Type 2 diabetes mellitus without complications
CPT/HCPCS: 87804; 87880; 99212; 99214; G0463

== ENCOUNTER 2022-10-26 11:36 | Emergency (ER) | payer BC, SELFPAY ==
[2022-10-26 11:36] VITALS: BP 132/81; PULSE 76; RESP 16; TEMP 36.8; O2SAT 99; BMI 30.2
--- NOTE | 2022-10-26 11:56 | EXP.UTC ---
Discharge Plan Disposition Patient Disposition: Home, Self-Care Condition: Good Prescriptions Prescriptions: New methylprednisolone 4 mg Tablets,Dose Pack 4 mg PO DIRECTED Qty: 21 0RF No Action hydroxychloroquine 200 mg tablet 400 mg PO DAILY Rx Instructions: GIVE WITH FOOD omeprazole 40 mg capsule,delayed release(DR/EC) 80 mg PO DAILY (DME) Ultra Thin Lancets 31 gauge misc See Rx Instructions .ROUTE .MEDSUPPLY Qty: 100 2RF Rx Instructions: Test sugar three times daily atorvastatin 10 MG tablet 10 mg PO QHS bupropion HCl 75 mg tablet 75 mg PO DAILY Label Comments: TAKE 1 TABLET BY MOUTH TWICE DAILY sertraline 50 mg tablet 50 mg PO DAILY Label Comments: TAKE 3 TABLETS BY MOUTH ONCE DAILY . APPOINTMENT REQUIRED FOR FUTURE REFILLS losartan 50 mg tablet See Rx Instructions .ROUTE .COMPLEX Rx Instructions: Take 1 tablet by mouth once daily for blood pressure albuterol sulfate 90 mcg/actuation HFA aerosol inhaler See Rx Instructions .ROUTE .COMPLEX Rx Instructions: INHALE 2 PUFFS BY MOUTH EVERY 4 TO 6 HOURS NEEDED FOR SHORTNESS OF BREATH OR WHEEZING hydrochlorothiazide 12.5 mg tablet See Rx Instructions .ROUTE .COMPLEX Rx Instructions: Take 1 tablet by mouth once daily for blood pressure benzonatate 100 mg capsule 100 mg PO TID PRN (Reason: cough) Qty: 30 0RF azithromycin [Zithromax Z-Ricardo] 250 mg tablet See Rx Instructions .ROUTE .COMPLEX 5 Days Qty: 6 0RF Rx Instructions: For 250 mg dose pack: take 500 mg today (day 1), then 250 mg for 4 days (days 2-5) methylprednisolone [Medrol (Ricardo)] 4 mg tablets,dose pack See Rx Instructions .Route .COMPLEX 6 Days Qty: 21 0RF Rx Instructions: taper pack; promethazine 25 mg tablet 25 mg PO TID PRN (Reason: nausea and vomiting) Qty: 10 0RF Referrals Follow up/Referrals: En Bennett JR, MD [Physician] - See instructions Viola Lobo MD [Primary Care Provider] - See instructions Activity Restrictions/Add. Instructions Additional Instructions/Restrictions: Rest the extremity, Elevate the extremity as tolerated while you are resting. Take the medication as directed. Follow up with Dr. Bennett (orthopedics) if you continue to have symptoms. I put in a referral but you need to call his office and schedule an appointment. Follow up with your regular doctor. GO TO THE ER FOR ANY WORSENING SYMPTOMS Clinical Impressions Clinical Impression: Tendinitis of left forearm Instructions Patient Instructions: DI for Tendinitis Discharge ED Provider: Camron Scott [facility] [place] General Stated complaint: LT arm pain no known accident Mode of Arrival: Ambulatory Source of Information: Patient Limitations: No Limitations Time Seen by Provider: 10/26/22 11:57 Description of Symptoms (Recalled from Triage Doc. by RN): Patient complains of left forarm pain that began yesterday. Denies any injury. HEENT Symptoms (Recalled from RN notes): No Resp Symptoms (Recalled from RN notes): No Skin Symptoms (Recalled from RN notes): No MS Symptoms (Recalled from RN notes): Yes Functional Status (Recalled from RN notes): wnl History of Present Illness Provider Complaint: She c/o left elbow nad forearm pain for the past 2 days. She denies any fall or injury. Related Data Home Medications Medication Instructions Recorded Confirmed hydroxychloroquine 200 mg tablet 400 mg PO DAILY Rheumatoid 09/02/19 08/28/22 arthritis omeprazole 40 mg capsule,delayed 80 mg PO DAILY GERD 09/02/19 08/28/22 release atorvastatin 10 mg tablet 10 mg PO QHS Cholesterol 12/28/19 08/28/22 albuterol sulfate 90 mcg/actuation See Rx Instructions .Route 08/28/22 08/28/22 aerosol inhaler .COMPLEX . bupropion HCl 75 mg tablet 75 mg PO DAILY . 08/28/22 08/28/22 hydrochlorothiazide 12.5 mg tablet See Rx Instructions .Route 08/28/22 08/28/22 .COMPLEX . lo
[2022-10-26 12:30] VITALS: BP 132/81; PULSE 76; RESP 16; TEMP 36.8; O2SAT 99
== END 2022-10-26 12:31 | disposition home or self-care (01) ==
PROVIDERS: Emergency Provider Nurse Practitioner Family; PCP Family Medicine
DX: M65.832 Other synovitis and tenosynovitis, left forearm (principal); E11.9 Type 2 diabetes mellitus without complications; I10 Essential (primary) hypertension; F41.9 Anxiety disorder, unspecified; F32.9 Major depressive disorder, single episode, unspecified
CPT/HCPCS: 99212; 99214; G0463

== ENCOUNTER 2023-01-09 12:57 | Emergency (ER) | payer BC, SELFPAY ==
[2023-01-09 13:07] VITALS: BP 179/68; PULSE 86; RESP 20; TEMP 36.8; O2SAT 98; BMI 29.6
--- NOTE | 2023-01-09 13:25 | HMH.EDGENADL ---
Discharge Plan Disposition Patient Disposition: Home, Self-Care Prescriptions Prescriptions: No Action hydroxychloroquine 200 mg tablet 400 mg PO DAILY Rx Instructions: GIVE WITH FOOD omeprazole 40 mg capsule,delayed release(DR/EC) 80 mg PO DAILY (DME) Ultra Thin Lancets 31 gauge misc See Rx Instructions .ROUTE .MEDSUPPLY Qty: 100 2RF Rx Instructions: Test sugar three times daily atorvastatin 10 MG tablet 10 mg PO QHS bupropion HCl 75 mg tablet 75 mg PO DAILY Patient Comments: TAKE 1 TABLET BY MOUTH TWICE DAILY sertraline 50 mg tablet 50 mg PO DAILY Patient Comments: TAKE 3 TABLETS BY MOUTH ONCE DAILY . APPOINTMENT REQUIRED FOR FUTURE REFILLS losartan 50 mg tablet See Rx Instructions .ROUTE .COMPLEX Rx Instructions: Take 1 tablet by mouth once daily for blood pressure albuterol sulfate 90 mcg/actuation HFA aerosol inhaler See Rx Instructions .ROUTE .COMPLEX Rx Instructions: INHALE 2 PUFFS BY MOUTH EVERY 4 TO 6 HOURS NEEDED FOR SHORTNESS OF BREATH OR WHEEZING hydrochlorothiazide 12.5 mg tablet See Rx Instructions .ROUTE .COMPLEX Rx Instructions: Take 1 tablet by mouth once daily for blood pressure benzonatate 100 mg capsule 100 mg PO TID PRN (Reason: cough) Qty: 30 0RF azithromycin [Zithromax Z-Ricardo] 250 mg tablet See Rx Instructions .ROUTE .COMPLEX 5 Days Qty: 6 0RF Rx Instructions: For 250 mg dose pack: take 500 mg today (day 1), then 250 mg for 4 days (days 2-5) methylprednisolone [Medrol (Ricardo)] 4 mg tablets,dose pack See Rx Instructions .Route .COMPLEX 6 Days Qty: 21 0RF Rx Instructions: taper pack; promethazine 25 mg tablet 25 mg PO TID PRN (Reason: nausea and vomiting) Qty: 10 0RF methylprednisolone 4 mg Tablets,Dose Pack 4 mg PO DIRECTED Qty: 21 0RF Referrals Follow up/Referrals: Provider,Referral, MD [Primary Care Provider] - See instructions Clinical Impressions Clinical Impression: Foreign body of ear, right Instructions Patient Instructions: DI for Skin Abscess Discharge ED Provider: Claudia Patiño General Adult HPI General Chief complaint: Skin/Abscess/Foreign Body Stated complaint: FO in right ear Time Seen by Provider: 01/09/23 13:00 Mode of Arrival: Ambulatory Source of Information: Patient Limitations: No Limitations Description of Symptoms (Recalled from ER Triage Doc. by RN): pt to ed c/o right ear foreign body. pt states she thinks a piece of her hearing aid is stuck in her ear. History of Present Illness HPI narrative: 52-year-old female here with right ear foreign body after a small piece of her hearing aid fell off and became lodged in her ear. It is a small rubber apparatus that goes on the end of her hearing aid was not broken she has no other symptoms associated with this. She was unable to get this out at home. Related Data Home Medications Medication Instructions Recorded Confirmed hydroxychloroquine 200 mg tablet 400 mg PO DAILY Rheumatoid 09/02/19 08/28/22 arthritis omeprazole 40 mg capsule,delayed 80 mg PO DAILY GERD 09/02/19 08/28/22 release atorvastatin 10 mg tablet 10 mg PO QHS Cholesterol 12/28/19 08/28/22 albuterol sulfate 90 mcg/actuation See Rx Instructions .Route 08/28/22 08/28/22 aerosol inhaler .COMPLEX . bupropion HCl 75 mg tablet 75 mg PO DAILY . 08/28/22 08/28/22 hydrochlorothiazide 12.5 mg tablet See Rx Instructions .Route 08/28/22 08/28/22 .COMPLEX . losartan 50 mg tablet See Rx Instructions .Route 08/28/22 08/28/22 .COMPLEX . sertraline 50 mg tablet 50 mg PO DAILY . 08/28/22 08/28/22 Previous Rx's Medication Instructions Recorded lancets 31 gauge (Ultra Thin #100 ea 07/26/20 Lancets) azithromycin 250 mg tablet See Rx Instructions PO .COMPLEX 5 08/28/22 (Zithromax Z-Ricardo) days #6 tabs benzonatate 100 mg capsule 100 mg PO TID PRN cough #30 caps 08/28/22 methylprednisolone 4 mg table
[2023-01-09 13:30] VITALS: BP 137/86; PULSE 80; RESP 18; TEMP 36.8; O2SAT 97
== END 2023-01-09 13:31 | disposition home or self-care (01) ==
LOC: ER 13:07
PROVIDERS: Emergency Provider Student in an Organized Health Care Education/Training Program
DX: T16.1XXA Foreign body in right ear, initial encounter (principal); E11.9 Type 2 diabetes mellitus without complications; I10 Essential (primary) hypertension; F41.9 Anxiety disorder, unspecified; F32.A Depression, unspecified
CPT/HCPCS: 69200; 99282

== ENCOUNTER 2023-06-07 15:59 | Emergency (ER) | payer BC, SELFPAY ==
[2023-06-07 16:10] VITALS: BP 159/87; PULSE 74; RESP 18; TEMP 36.9; O2SAT 100; BMI 29.1
--- NOTE | 2023-06-07 16:16 | ED_ITS ---
Discharge Plan Disposition Patient Disposition: Home, Self-Care Condition: Good Prescriptions Prescriptions: New azithromycin [Zithromax] 250 mg tablet 250 mg PO UD DOSE PK Qty: 6 0RF Rx Instructions: Take two (2) tablets today, then one (1) tablet days #2 thru #5 benzonatate [benzonatate] 100 mg capsule 100 mg PO TIDP PRN (Reason: Cough) Qty: 30 0RF methylprednisolone 4 mg Tablets,Dose Pack 4 mg PO DIRECTED 6 Days Qty: 21 0RF Rx Instructions: Take 1 pack as directed for 6 days No Action omeprazole 40 mg capsule,delayed release(DR/EC) 80 mg PO DAILY (DME) Ultra Thin Lancets 31 gauge misc See Rx Instructions .ROUTE .MEDSUPPLY Qty: 100 2RF Rx Instructions: Test sugar three times daily atorvastatin 10 MG tablet 10 mg PO QHS bupropion HCl 75 mg tablet 75 mg PO DAILY Patient Comments: TAKE 1 TABLET BY MOUTH TWICE DAILY sertraline 50 mg tablet 50 mg PO DAILY Patient Comments: TAKE 3 TABLETS BY MOUTH ONCE DAILY . APPOINTMENT REQUIRED FOR FUTURE REFILLS losartan 50 mg tablet See Rx Instructions .ROUTE .COMPLEX Rx Instructions: Take 1 tablet by mouth once daily for blood pressure albuterol sulfate 90 mcg/actuation HFA aerosol inhaler See Rx Instructions .ROUTE .COMPLEX Rx Instructions: INHALE 2 PUFFS BY MOUTH EVERY 4 TO 6 HOURS NEEDED FOR SHORTNESS OF BREATH OR WHEEZING hydrochlorothiazide 12.5 mg tablet See Rx Instructions .ROUTE .COMPLEX Rx Instructions: Take 1 tablet by mouth once daily for blood pressure cyclobenzaprine 10 mg tablet 10 mg PO DAILY zolpidem 5 mg tablet 5 mg PO DAILY pregabalin 75 mg capsule See Rx Instructions .ROUTE .COMPLEX Patient Comments: TAKE 1 CAPSULE BY MOUTH THREE TIMES DAILY Rx Instructions: TAKE 1 CAPSULE BY MOUTH THREE TIMES DAILY Referrals Follow up/Referrals: Provider,Referral, MD [Primary Care Provider] - See instructions Activity Restrictions/Add. Instructions Additional Instructions/Restrictions: Drink plenty of fluids. Take tylenol or ibuprofen for pain or fever. Take the medications as directed. Follow up with your regular doctor. GO TO THE ER FOR ANY WORSENING SYMPTOMS Clinical Impressions Clinical Impression: Sinusitis Instructions Patient Instructions: Sinusitis, DI for Sinusitis Discharge ED Provider: Camron Scott [facility] [place] Stated complaint: cough, runny nose Time Seen by Provider: 06/07/23 16:15 History of Present Illness Provider Complaint: She states that for the past 5 days she has had worsening sinus congestion and sinus drainage. She has been exposed to covid-19. She denies fever/chills/body aches. Related Data Home Medications Medication Instructions Recorded Confirmed omeprazole 40 mg capsule,delayed 80 mg PO DAILY GERD 09/02/19 06/07/23 release atorvastatin 10 mg tablet 10 mg PO QHS Cholesterol 12/28/19 06/07/23 albuterol sulfate 90 mcg/actuation See Rx Instructions .Route 08/28/22 06/07/23 aerosol inhaler .COMPLEX . bupropion HCl 75 mg tablet 75 mg PO DAILY . 08/28/22 06/07/23 hydrochlorothiazide 12.5 mg tablet See Rx Instructions .Route 08/28/22 06/07/23 .COMPLEX . losartan 50 mg tablet See Rx Instructions .Route 08/28/22 06/07/23 .COMPLEX . sertraline 50 mg tablet 50 mg PO DAILY . 08/28/22 06/07/23 cyclobenzaprine 10 mg tablet 10 mg PO DAILY 06/07/23 06/07/23 pregabalin 75 mg capsule See Rx Instructions .Route .COMPLEX 06/07/23 06/07/23 zolpidem 5 mg tablet 5 mg PO DAILY 06/07/23 06/07/23 Previous Rx's Medication Instructions Recorded lancets 31 gauge (Ultra Thin #100 ea 07/26/20 Lancets) azithromycin 250 mg tablet 250 mg PO UD DOSE PK #6 tabs 06/07/23 (Zithromax) benzonatate 100 mg capsule 100 mg PO TIDP PRN Cough #30 caps 06/07/23 methylprednisolone 4 mg tablets in 4 mg PO DIRECTED 6 days #21 tabs 06/07/23 a dose pack Allergies Allergy/AdvReac Type Severity Reaction Status Date / Time venlafaxine [From EFFEXOR] Allergy Severe Anaphylaxis Verified 06/07/23 16:38 amoxicillin [From AUGMENTIN] Allergy Mild Rash Verified 06/07/23 16:38 cephalexin [From Keflex] Allergy Mild Rash Verified 06/07/23 16:38 clavulanic acid Allergy Mild Rash Verified 06/07/23 16:38 [From AUGMENTIN] sulfamethoxazole Allergy Mild Rash Verified 06/07/23 16:38 [From BACTRIM] trimethoprim [From BACTRIM] Allergy Mild Rash Verified 06/07/23 16:38 [facility] Disclaimer: The information contained in this section may have been updated after the patient was seen, as this information can be updated by other users. Medical History Anxiety Depression Diabetes mellitus, type 2 Endometriosis History of gastroesophageal reflux (GERD) Hypertension Liver disease Migraine Urinary tract infection Surgical History History of shoulder surgery Social History Smoking Status: Never smoker alcohol intake: never substance use type: denies use current occupational status: employed Travel in the last 8 weeks: None household members: other housing: other caffeine: Yes ROS Obtained: Yes All systems reviewed & no additional complaints except as documented Constitutional Constitutional: Reports poor appetite Eyes Eyes: Reports system reviewed and no additional complaints, except as documented ENT Ears, Nose, Mouth, and Throat: Reports as per HPI Cardiovascular Cardiovascular: Reports system reviewed and no additional complaints, except as documented and Denies chest pain Respiratory Respiratory: Denies shortness of breath, Denies chest congestion, Reports cough, Denies stridor and Denies wheezing Gastrointestinal Gastrointestingal: Reports system reviewed and no additional complaints, except as documented; Denies abdominal pain, diarrhea or vomiting Musculoskeletal Musculoskeletal: Reports system reviewed and no additional complaints, except as documented and Denies arthralgias Integumentary/Breasts Skin/Breast: Reports system reviewed and no additional complaints, except as documented and Denies rash Neurologic Neurologic: Denies paresthesias Allergic/Immunologic Allergic/Immunologic: Denies wheezing Physical Exam General General appearance: alert and in no apparent distress Eye Eye exam: Present normal appearance, PERRL and EOMI ENT ENT exam: Present mucous membranes moist and normal external ear exam Expanded ENT Exam External ear exam: Present normal external inspection TM/Canal exam: Bilateral TM: erythema and bulging Nose exam: Absent sinus tenderness Nasal speculum exam: Bilateral: normal Mouth exam: Present normal external inspection; Absent drooling Teeth exam: Present normal inspection Throat exam: Present tonsillar erythema and tonsillomegaly Neck Neck exam: Present normal inspection, full ROM and trachea midline; Absent tenderness, lymphadenopathy or thyromegaly Chest Chest inspection: Present normal inspection and symmetric chest wall rise; Absent tenderness or rash Respiratory Respiratory exam: Present normal lung sounds bilaterally; Absent respiratory distress, wheezes, stridor or accessory muscle use Cardiovascular Cardiovascular exam: Present regular rate, normal rhythm and normal heart sounds Abdominal Exam Abdominal exam: Present soft; Absent distention, tenderness, guarding, rebound or rigidity Extremities Exam Extremities exam: Present normal inspection, full ROM and normal capillary refill; Absent tenderness or calf tenderness Back Exam Back exam: Present normal inspection and full ROM; Absent tenderness Neurological Exam Neurological exam: Present alert and oriented X3 Psychiatric Psychiatric exam: Present normal affect and normal mood Skin Skin exam: Present warm, dry, intact and normal color Lymphatic Lymphatic Findings: no adenopathy Medical Decision Making Medical Records Medical records reviewed: No I reviewed the patient's medical records. Hugo Lawler Pt receiving controlled substance: No Lab Data Lab results reviewed: Yes I reviewed the patient's lab results.
[2023-06-07 17:18] VITALS: BP 159/87; PULSE 74; RESP 18; TEMP 36.9; O2SAT 100
== END 2023-06-07 16:50 | disposition home or self-care (01) ==
PROVIDERS: Emergency Provider Nurse Practitioner Family
DX: J01.90 Acute sinusitis, unspecified (principal); R05.9 Cough, unspecified; E11.9 Type 2 diabetes mellitus without complications; I10 Essential (primary) hypertension; F41.9 Anxiety disorder, unspecified; F32.A Depression, unspecified; N80.9 Endometriosis, unspecified
CPT/HCPCS: 87635; 99212; 99214; G0463

== ENCOUNTER 2023-12-07 14:51 | Emergency (ER) | payer BC, SELFPAY ==
[2023-12-07 15:00] VITALS: BP 165/82; PULSE 74; RESP 16; TEMP 36.8; O2SAT 98; BMI 29.2
--- NOTE | 2023-12-07 15:14 | ED_ITS ---
Discharge Plan Disposition Patient Disposition: Home, Self-Care Condition: Good Prescriptions Prescriptions: New clindamycin HCl 300 mg capsule 300 mg PO Q8H Qty: 30 0RF methylprednisolone 4 mg Tablets,Dose Pack 4 mg PO DIRECTED 6 Days Qty: 21 0RF Rx Instructions: Take 1 pack as directed for 6 days No Action omeprazole 40 mg capsule,delayed release(DR/EC) 80 mg PO DAILY (DME) Ultra Thin Lancets 31 gauge misc See Rx Instructions .ROUTE .MEDSUPPLY Qty: 100 2RF Rx Instructions: Test sugar three times daily atorvastatin 10 MG tablet 10 mg PO QHS bupropion HCl 75 mg tablet 75 mg PO DAILY Patient Comments: TAKE 1 TABLET BY MOUTH TWICE DAILY sertraline 50 mg tablet 50 mg PO DAILY Patient Comments: TAKE 3 TABLETS BY MOUTH ONCE DAILY . APPOINTMENT REQUIRED FOR FUTURE REFILLS losartan 50 mg tablet See Rx Instructions .ROUTE .COMPLEX Rx Instructions: Take 1 tablet by mouth once daily for blood pressure albuterol sulfate 90 mcg/actuation HFA aerosol inhaler See Rx Instructions .ROUTE .COMPLEX Rx Instructions: INHALE 2 PUFFS BY MOUTH EVERY 4 TO 6 HOURS NEEDED FOR SHORTNESS OF BREATH OR WHEEZING hydrochlorothiazide 12.5 mg tablet See Rx Instructions .ROUTE .COMPLEX Rx Instructions: Take 1 tablet by mouth once daily for blood pressure cyclobenzaprine 10 mg tablet 10 mg PO DAILY zolpidem 5 mg tablet 5 mg PO DAILY pregabalin 75 mg capsule See Rx Instructions .ROUTE .COMPLEX Patient Comments: TAKE 1 CAPSULE BY MOUTH THREE TIMES DAILY Rx Instructions: TAKE 1 CAPSULE BY MOUTH THREE TIMES DAILY Referrals Follow up/Referrals: Provider,Referral, MD [Referring] - See instructions Activity Restrictions/Add. Instructions Additional Instructions/Restrictions: Drink plenty of fluids. Take tylenol or ibuprofen for pain or fever. Take the medications as directed. Follow up with your regular doctor. GO TO THE ER FOR ANY WORSENING SYMPTOMS Clinical Impressions Clinical Impression: Otitis media Instructions Patient Instructions: Middle Ear Infection Discharge ED Provider: Camron Scott [facility] [place] HPI General Stated complaint: left ear pain Mode of Arrival: Ambulatory Source of Information: Patient Limitations: No Limitations Time Seen by Provider: 12/07/23 15:14 Description of Symptoms (Recalled from Triage Doc. by RN): Pt's symptoms are left ear pain. HEENT Symptoms (Recalled from RN notes): Yes Resp Symptoms (Recalled from RN notes): No Skin Symptoms (Recalled from RN notes): No MS Symptoms (Recalled from RN notes): No Functional Status (Recalled from RN notes): n/a Related Data Home Medications Medication Instructions Recorded Confirmed omeprazole 40 mg capsule,delayed 80 mg PO DAILY GERD 09/02/19 12/07/23 release atorvastatin 10 mg tablet 10 mg PO QHS Cholesterol 12/28/19 12/07/23 albuterol sulfate 90 mcg/actuation See Rx Instructions .Route 08/28/22 12/07/23 aerosol inhaler .COMPLEX . bupropion HCl 75 mg tablet 75 mg PO DAILY . 08/28/22 12/07/23 hydrochlorothiazide 12.5 mg tablet See Rx Instructions .Route 08/28/22 12/07/23 .COMPLEX . losartan 50 mg tablet See Rx Instructions .Route 08/28/22 12/07/23 .COMPLEX . sertraline 50 mg tablet 50 mg PO DAILY . 08/28/22 12/07/23 cyclobenzaprine 10 mg tablet 10 mg PO DAILY 06/07/23 12/07/23 pregabalin 75 mg capsule See Rx Instructions .Route .COMPLEX 06/07/23 12/07/23 zolpidem 5 mg tablet 5 mg PO DAILY 06/07/23 12/07/23 Previous Rx's Medication Instructions Recorded lancets 31 gauge (Ultra Thin #100 ea 07/26/20 Lancets) clindamycin HCl 300 mg capsule 300 mg PO Q8H #30 caps 12/07/23 methylprednisolone 4 mg tablets in 4 mg PO DIRECTED 6 days #21 tabs 12/07/23 a dose pack Allergies Allergy/AdvReac Type Severity Reaction Status Date / Time venlafaxine [From EFFEXOR] Allergy Severe Anaphylaxis Verified 12/07/23 15:08 amoxicillin [From AUGMENTIN] Allergy Mild Rash Verified 12/07/23 15:08 cephalexin [From Keflex] Allergy Mild Rash Verified 12/07/23 15:08 clavulanic acid Allergy Mild Rash Verified 12/07/23 15:08 [From AUGMENTIN] sulfamethoxazole Allergy Mild Rash Verified 12/07/23 15:08 [From BACTRIM] trimethoprim [From BACTRIM] Allergy Mild Rash Verified 12/07/23 15:08 Worker's Comp Is this a Worker's Comp case?: No [facility] Disclaimer: The information contained in this section may have been updated after the patient was seen, as this information can be updated by other users. Medical History Anxiety Depression Diabetes mellitus, type 2 Endometriosis History of gastroesophageal reflux (GERD) Hypertension Liver disease Migraine Urinary tract infection Surgical History History of shoulder surgery Social History Smoking Status: Never smoker alcohol intake: never substance use type: denies use current occupational status: employed Travel in the last 8 weeks: None household members: other housing: other caffeine: Yes ROS Obtained: Yes All systems reviewed & no additional complaints except as documented Constitutional Constitutional: Denies chills, Reports fever(s) and Reports poor appetite Eyes Eyes: Denies eye discharge ENT Ears, Nose, Mouth, and Throat: Denies ear discharge, Reports otalgia, Denies hearing loss, Denies sinus pain and Reports sore throat Cardiovascular Cardiovascular: Denies chest pain and Denies dyspnea Respiratory Respiratory: Denies chest congestion, Reports cough and Denies dyspnea Gastrointestinal Gastrointestingal: Denies abdominal pain, diarrhea, nausea or vomiting Musculoskeletal Musculoskeletal: Denies arthralgias Integumentary/Breasts Skin/Breast: Denies rash Physical Exam General General appearance: alert and in no apparent distress Head Head exam: atraumatic, normocephalic and normal inspection Eye Eye exam: Present normal appearance; Absent PERRL or EOMI ENT ENT exam: Present mucous membranes moist and normal external ear exam Expanded ENT Exam TM/Canal exam: Bilateral TM: erythema, bulging and effusion Nose exam: Absent sinus tenderness Nasal speculum exam: Bilateral: normal Mouth exam: Present normal external inspection and other; Absent drooling Teeth exam: Present normal inspection Throat exam: Present tonsillar erythema and tonsillomegaly Neck Neck exam: Present normal inspection, full ROM and trachea midline; Absent tenderness, meningismus or lymphadenopathy Chest Chest inspection: Present normal inspection and symmetric chest wall rise; Absent tenderness Respiratory Respiratory exam: Present normal lung sounds bilaterally; Absent respiratory distress, wheezes or stridor Cardiovascular Cardiovascular exam: Present regular rate, normal rhythm and normal heart sounds; Absent tachycardia or irregular rhythm Abdominal Exam Abdominal exam: Present soft and normal bowel sounds; Absent distention, tenderness, guarding, rebound or rigidity Extremities Exam Extremities exam: Present normal inspection and normal capillary refill; Absent tenderness, joint swelling or calf tenderness Back Exam Back exam: Present normal inspection and full ROM; Absent tenderness, CVA tenderness (R) or CVA tenderness (L) Neurological Exam Neurological exam: Present alert, oriented X3, CN II-XII intact, normal gait and reflexes normal; Absent motor sensory deficit Psychiatric Psychiatric exam: Present normal affect and normal mood Skin Skin exam: Present warm, dry, intact and normal color Lymphatic Lymphatic Findings: no adenopathy Medical Decision Making Medical Records Medical records reviewed: No I reviewed the patient's medical records. Hugo Inquiry Pt receiving controlled substance: No Vital Signs: 12/07/23 15:00 Temperature 98.2 F Temperature Source Oral Pulse Rate [Right Radial] 74 Respiratory Rate 16 Blood Pressure [Right Arm] 165/82 H Blood Pressure Mean [Right Arm] 109 Blood Pressure Source [Right Arm] Automatic Cuff Blood Pressure Position [Right Arm] Sitting 02 Sat by Pulse Oximetry 98 Oxygen Delivery Method Room Air
[2023-12-07 15:37] VITALS: BP 165/82; PULSE 74; RESP 16; TEMP 36.8; O2SAT 98
== END 2023-12-07 15:37 | disposition home or self-care (01) ==
PROVIDERS: Emergency Provider Nurse Practitioner Family; PCP Emergency Medicine
DX: H66.92 Otitis media, unspecified, left ear (principal); H92.02 Otalgia, left ear
CPT/HCPCS: 99212; 99214; G0463

== ENCOUNTER 2025-05-14 13:21 | Outpatient (CLI) | payer MEDICAID, SELFPAY ==
--- NOTE | 2025-05-14 13:23 | XR_ITS ---
FINAL REPORT CLINICAL HISTORY: CXR FINDINGS: CHEST 2 VIEWS PA AND LATERAL The heart is normal in size. The mediastinum is unremarkable. The lungs are clear. There is no pneumothorax. IMPRESSION: No acute process. Reviewed, Interpreted and Dictated by German Jimenes MD Transcribed by Vivi Guan Authenticated and [facility]
== END 2025-05-14 23:59 | disposition home or self-care (01) ==
LOC: RAD 13:21
PROVIDERS: PCP Emergency Medicine; Visit Provider Student in an Organized Health Care Education/Training Program
DX: R05.9 Cough, unspecified (principal)
CPT/HCPCS: 71046